=== PATIENT | male | born 1990 | race African-American/Black ===

== ENCOUNTER 2016-07-01 20:33 | Inpatient (IN) | payer OTHER ==
--- NOTE | ~2016-07-01 | HP ---
History And Physical [address] [place]. [address] NAME: TOD HEMPHILL : 89 STATUS : ADM Justin PAT#: [id number] AGE: 26 ADM/REG DATE : 07/01/16 MR#: [id number] REPORT SERV DATE: 07/02/16 DICTATED BY: GEORGI BEAR DATE: 07/01/16 REPORT STATUS : Draft TRANSCRIBED BY: MODL DATE: 07/01/16 DATE OF ADMISSION: 07/01/2016 CHIEF COMPLAINT: Flu-like symptoms and body aches for the last three days or so. HISTORY OF PRESENT ILLNESS: This is a 26-year-old male, who presents to the emergency room at [facility] with the above-mentioned complaint. History is obtained from the patient, his girlfriend who is at bedside, and reviewing data available on the [employer] system. According to Mr. Hemphill and his girlfriend, he had been having ongoing abdominal pain for the last two years or so. Pain is usually in the left lower quadrant of the region and it is constant according to him. He had been to [facility] numerous times and the latest being last week, when according to them, no clear-cut diagnosis was made and no specific treatment was given so far. Then in the last three days, he started having fevers, myalgia, anorexia, and symptoms generally of having a flu. His girlfriend thought it may be tied to his abdominal pain and they decided to come here to be evaluated. In the emergency room, initial workup including a CT scan of his abdomen and pelvis revealed inflamed terminal ileus suggestive of terminal ileitis Crohn's disease pattern due to the inflammation and may be a partial small bowel obstruction as well. He also tested positive for influenza A today. Upon presentation, his temperature was 102 degrees Fahrenheit, heart rate was 110, and WBC was 11,000. Hospitalist Service asked to admit him for further evaluation and treatment. At the time of my evaluation, he denied any chest pain, palpitations, or orthopnea. He had no cough, hemoptysis, night sweats, or weight loss. He has not had any recent falls or loss of consciousness. Did have fevers and chills as mentioned above. Denied any nausea, vomiting, diarrhea, hematemesis, hematochezia, or hematuria. No other history of recent travel or exposures other than those mentioned above. PAST MEDICAL HISTORY: Significant for history of asthma, chronic left-sided abdominal pain. SOCIAL HISTORY: He smokes cigarettes and uses marijuana as well. He denies alcohol use or any other recreational drug use. He is currently unemployed. FAMILY HISTORY: Noncontributory. MEDICATIONS: At home were reviewed by me in the chart today and reordered by me. REVIEW OF SYSTEMS: As in history of present illness. All other systems were reviewed in detail and quite unremarkable. PHYSICAL EXAMINATION: GENERAL: This is a 26-year-old, not in any acute distress. History And Physical [address] [address] NAME: TOD HEMPHILL : 90 STATUS : ADM Justin PAT#: [id number] AGE: 26 ADM/REG DATE : 07/01/16 MR#: [id number] REPORT SERV DATE: 07/02/16 DICTATED BY: GEORGI BEAR DATE: 07/01/16 REPORT STATUS : Draft TRANSCRIBED BY: MARY JO DATE: 07/01/16 HEENT: His head appears to be atraumatic, normocephalic. He is alert, awake, and oriented to time, place, and person. His pupils are equal, reacting to light and accommodating. External ocular muscles are intact. Membranes are moist and pink. Sclerae are nonicteric. NECK: Supple with no jugular venous distention, lymphadenopathy, or thyromegaly. LUNGS: Clear to auscultation with no wheezes, rubs, or crackles. HEART: Heart sounds are regular with no murmurs, rubs, or gallops. ABDOMEN: Soft, nontender. Bowel sounds are present. EXTREMITIES: Show no cyanosis, clubbing, or edema. NEUROLOGIC: Grossly intact. No focal sensory or motor deficits. Higher functions appear intact. VITAL SIGNS: Today show a temperature of 102.8 upon arrival, pulse is 110, respirations 18 a minute, and blood pressure upon arrival was 129/68 oxygen, saturations are 97%, breathing 2 L of oxygen via nasal cannula. LABORATORY DATA: Reviewed on the [facility] [employer] system showed a sodium of 136, potassium 4.2, chloride 101, CO2 of 29, BUN was 11 with a creatinine of 1.37. We do not have any prior values to compare with. Blood glucose was 88. CBC showed a white blood cell count of 11,500, hemoglobin was 12.9, hematocrit 37.8, and platelet count was 407,000. Influenza A was positive today. Urinalysis was grossly unremarkable. Films of the CT scan of his abdomen and pelvis were reviewed by me on the PACS today and interpreted by me. Official radiology comments were also reviewed. According to Radiology, there is marked thickened viscus extending from the margin of the cecum up the expected location of the ileocecal valve suggesting a markedly inflamed terminal ilium. This suggests a terminal ileitis Crohn disease pattern. Please see report for all the other details. There is also low-grade partial small bowel obstruction pattern or asymmetric small bowel ileus. Films of the chest x-ray were reviewed by me on the PACS today and interpreted by me. Per my interpretation, there are emphysematous lung nichole, otherwise no lobar consolidations or effusions. IMPRESSION: 1. Influenza. 2. Acute terminal ileitis. 3. Partial small bowel obstruction. 4. Asthma. 5. Left-sided abdominal pain. 6. Sepsis by criteria. PLAN: We will admit Mr. Hemphill to defensive monitoring under Hospitalist Service for a 24- hour observation period. We will start him on IV fluids for volume resuscitation, establish pain control intravenously, and check his chemistry and CBC in the morning. We will keep him n.p.o. for now and go ahead and consult Gastroenterology to see him in the morning due to his abnormal CT scan and abdominal pain. Meanwhile, we will place him on bronchodilator treatments, continue supplemental oxygen therapy, antipyretics, and other supportive care. We will obtain cultures, but hold off on antibiotics at this time. He will be started on History And Physical [address] [address] NAME: TOD HEMPHILL : 90 STATUS : ADM Justin PAT#: [id number] AGE: 26 ADM/REG DATE : 07/01/16 MR#: [id number] REPORT SERV DATE: 07/02/16 DICTATED BY: GEORGI BEAR DATE: 07/01/16 REPORT STATUS : Draft TRANSCRIBED BY: MODL DATE: 07/01/16 Latanya [address]. We will place him on SCDs for DVT prophylaxis while here as well. I have discussed the above plans with the patient and his girlfriend. Their questions were answered. They are agreeable to the above recommendations. Hospitalist Service will be following him during his stay here. KASANDRA Georgi Bear M.D. / [id number] CC: Nish Lynn M.D.
--- NOTE | ~2016-07-01 | DS ---
Discharge Summary [facility] [address] [facility] [place]. [address] NAME: TOD HEMPHILL : 90 STATUS : DIS IN PAT#: [id number] AGE: 26 ADM/REG DATE : 07/01/16 MR#: [id number] REPORT SERV DATE: 07/15/16 DICTATED BY: RAUL WRIGHT DATE: 07/14/16 REPORT STATUS : Draft TRANSCRIBED BY: MODSuleiman DATE: 07/14/16 ADMISSION DATE: 07/01/2016 DISCHARGE DATE: 07/06/2016 DISCHARGE DIAGNOSES: 1. Influenza A present on arrival. 2. Chronic ileitis with presumptive Crohn disease, new diagnosis. 3. Partial small bowel obstruction, resolved by discharge. 4. Systemic inflammatory response syndrome. 5. Tobacco use. 6. Bradycardia. 7. Asthma history. CONSULTATIONS: Dr. Pink, Dr. High. DISCHARGE MEDICATIONS: 1. Mobic 7.5 mg one tab p.o. daily, #15. 2. Oxycodone 5 mg one tab p.o. q.8 hours p.r.n. pain, #15 both p.r.n. pain. Continue Robaxin 1500 mg one tab p.o. daily. The patient advised on sparingly using Advil, the patient was using this at home. Ultram 50 mg one tab p.o. b.i.d. as needed for breakthrough pain, home dose. Discharged to home with family to have followup with [facility] at discharge, GI in 4 to 8 weeks for Crohn disease, low residual diet. Information given to patient as well lactose free as tolerated and medications were assisted prior to discharge as the patient also required on discharge MAR, budesonide 9 mg one tab p.o. daily times 8-12 weeks for Crohn's. HOSPITAL COURSE: Please see H and P for complete details. HISTORY OF PRESENT ILLNESS: Briefly, Mr. Hemphill is a pleasant 26-year-old male previously healthy except for history of asthma and nicotine use who presents after having generalized body aches and flu-like symptoms diagnosed with flu A, however, on scanning was noted to have ileitis. Concurrently, the patient was consulted with GI and found to have symptoms consistent with Crohn's disease as the patient does have distant family members with Crohn's history. The patient was additionally also noted to have a partial small bowel obstruction. Both these were supportively treated with resolution of partial small bowel resection. While inpatient, the patient able to tolerate p.o. The patient was placed on anti-inflammatories for acute terminal ileitis, suspected Crohn's and completed treatment for flu while inpatient. The patient was slow to improve but did have improvement in symptoms to the point where he was able to tolerate p.o. When able to tolerate p.o., all questions were answered, and followups were attempted to arranged for treatment of this acute issue. The patient will need suppressive therapy over the next 4-6 weeks at which time, he will also need to have establishment with GI and PCP. We have attempted to arrange and we have given multiple venues for patient to establish care at his discretion, and we have also warren-assisted medications for him to have treatment for Crohn's as possible Discharge Summary [address] [place] [place]. [address] NAME: TOD HEMPHILL : 90 STATUS : DIS IN PAT#: [id number] AGE: 26 ADM/REG DATE : 07/01/16 MR#: [id number] REPORT SERV DATE: 07/15/16 DICTATED BY: RAUL WRIGHT DATE: 07/14/16 REPORT STATUS : Draft TRANSCRIBED BY: MODL DATE: 07/14/16 until this followup can be scheduled. The patient understands hospital plan, does have support system outpatient and asked very appropriate questions about disease process and is eager to make progress with current diagnosis. Greater than 30 minutes was spent with the patient education, discussion with plans, arrangement of care. DDN/ARACELIL Raul Wright MD / [id number] CC: Raul Wright MD
--- NOTE | ~2016-07-01 | CN ---
Consultation Report [address] [place]. [address] NAME: TOD MILAN : 90 STATUS : ADM Justin PAT#: [id number] AGE: 26 ADM/REG DATE : 07/01/16 MR#: [id number] REPORT SERV DATE: 07/03/16 DICTATED BY: EKTA US DATE: 07/03/16 REPORT STATUS : Draft TRANSCRIBED BY: MODL DATE: 07/03/16 CONSULTATION DATE OF CONSULTATION: 07/02/2016 LOCATION: Bed 421. I am asked to see this gentleman in Dr. High's absence. This 26-year-old man has had difficulty with abdominal pain for the last month or so. This seems to be intermittent, fleeting, involves the periumbilical area. He has had several episodes of nausea and vomiting. He reports he had a workup at [facility] including blood test was negative. He did not recall having x-rays or endoscopy. Because of persistent symptoms, he presented here for evaluation. New symptoms including fever, myalgias, anorexia, and mild chills. GENERAL REVIEW OF SYSTEMS: Otherwise negative. PAST HISTORY: Remarkable for history of asthma. PHYSICAL EXAMINATION: CHEST: Clear. CARDIAC: Regular rhythm. ABDOMEN: Soft with minimal tenderness to the periumbilical area. Bowel sounds normal. No palpable mass[place] [address], hemoglobin 12.9. Influenza A test was positive. CT of the abdomen raised the question of partial small bowel obstruction with possible inflammation of the terminal ileum. IMPRESSION: 1. Abdominal pain. 2. Abnormal x-ray. 3. Question partial small bowel obstruction. PLAN: Follow up abdominal films have been ordered. Dr. High will follow this patient in 24 hours. Thank you for allowing me to see this gentleman. Consultation Report [address] [place]. [address] NAME: TOD MILAN : 89 STATUS : ADM Justin PAT#: [id number] AGE: 26 ADM/REG DATE : 07/01/16 MR#: [id number] REPORT SERV DATE: 07/03/16 DICTATED BY: EKTA US DATE: 07/03/16 REPORT STATUS : Draft TRANSCRIBED BY: MODL DATE: 07/03/16 MB/MODL Ekta Us M.D. / [id number] CC: DO Grant Tanner M.D.
[2016-07-01 20:21] LABS: BASOPHILS 0.2 %; BASOPHILS ABSOLUTE 0.02 10/3/uL (0.0-0.16); EOSINOPHILS 0.1 %; EOSINOPHILS ABSOLUTE 0.01 10/3/uL (0.0-0.53); ER CBC TAT 0 Hrs 08 Mins; HEMATOCRIT 37.8 % (40.0-51.0); HEMOGLOBIN 12.9 g/dL (13.6-17.8); IMMATURE GRANULOCYTES 0.3 %; IMMATURE GRANULOCYTES ABSOLUTE 0.04 10/3/uL (0.0-0.11); LYMPHOCYTES 6.7 %; LYMPHOCYTES ABSOLUTE 0.77 10/3/uL (0.67-4.30); MEAN CORPUS HGB CONC 34.1 g/dL (32.0-36.0); MEAN CORPUSCULAR HEMOGLOB 30.4 pg (26.0-34.0); MEAN CORPUSCULAR VOLUME 89.2 fL (80-100); MEAN PLATELET VOLUME 9.7 fL (9.2-13.0); MONOCYTES 9.5 %; MONOCYTES ABSOLUTE 1.09 10/3/uL (0.21-1.20); NEUTROPHILS 83.2 %; PLATELET COUNT 407 10/3/uL (150-400); RBC DISTRIBUTION WIDTH 12.3 % (12.0-16.0); RED CELL COUNT 4.24 10/6/uL (4.7-6.1); WHITE BLOOD CELLS 11.5 10/3/uL (4.5-10.5)
[2016-07-01 20:23] LABS: MANUAL DIFF NO %
[2016-07-01 20:29] LABS: ASCORBIC ACID (UR NOT ORDER) NEG (NEG); BILIRUBIN, URINE NEGATIVE (NEG); ER URINALYSIS TAT 0 Hrs 13 Mins; KETONE, URINE NEGATIVE (NEG); LEUKOCYTE ESTERASE(NOT OR TRACE (NEG); NITRITE (URINE) NEG (NEG); WBC (NOT ORDERED) (RFLEX) 11 (0-5)
[2016-07-01 20:35] LABS: A/G RATIO 0.9 (0.7-1.9); ALBUMIN 3.5 G/DL (3.5-5.0); ALKALINE PHOSPHATASE 66 U/L (45-117); BUN (BLOOD UREA NITROGEN) 11 MG/DL (6-23); CALCIUM, SERUM 8.7 MG/DL (8.5-10.4); CHLORIDE, SERUM 101 MMOL/L (96-112); CO2 (CARBON DIOXIDE) 29 MMOL/L (24-34); CREATININE 1.37 MG/DL (0.70-1.30); GFR AFRICAN AMERICAN 82 ML/MIN (>=60); GFR NON AFRICAN AMERICAN 71 ML/MIN (>=60); GLOBULIN 4.1 G/DL (2.5-4.1); GLUCOSE, SERUM 88 MG/DL (60-99); LACTATE 1.6 MMOL/L (0.3-2.4); POTASSIUM, SERUM 4.2 MMOL/L (3.5-5.3); SGPT(ALT) 11 U/L (5-65); SODIUM, SERUM 136 MMOL/L (135-148); TOTAL BILIRUBIN 0.6 MG/DL (0-1.2); TOTAL PROTEIN 7.6 G/DL (6.0-8.5)
[2016-07-01 20:36] LABS: SGOT(AST) 17 U/L (5-40)
[2016-07-01 20:44] LABS: INFLUENZA A SCREEN POSITIVE (NEGATIVE); INFLUENZA B SCREEN NEGATIVE (NEGATIVE)
[2016-07-01 21:28] LABS: PROCALCITONIN 0.58 ng/mL (<0.5)
[2016-07-01] MEDS ORDERED: ADVIL PO (22:45)
[2016-07-01] MEDS ORDERED: ULTRAM50 PO (22:45)
[2016-07-01] MEDS ORDERED: METHOC750B PO (22:45)
[2016-07-02 05:34] LABS: ASCORBIC ACID (UR NOT ORDER) NEG (NEG); BILIRUBIN, URINE NEGATIVE (NEG); KETONE, URINE NEGATIVE (NEG); LEUKOCYTE ESTERASE(NOT OR NEG (NEG); WBC (NOT ORDERED) (RFLEX) 1 (0-5)
[2016-07-02 06:11] LABS: BASOPHILS 0.1 %; BASOPHILS ABSOLUTE 0.02 10/3/uL (0.0-0.16); EOSINOPHILS 0.1 %; EOSINOPHILS ABSOLUTE 0.02 10/3/uL (0.0-0.53); HEMATOCRIT 37.7 % (40.0-51.0); HEMOGLOBIN 12.9 g/dL (13.6-17.8); IMMATURE GRANULOCYTES 0.3 %; IMMATURE GRANULOCYTES ABSOLUTE 0.04 10/3/uL (0.0-0.11); LYMPHOCYTES 6.9 %; LYMPHOCYTES ABSOLUTE 0.95 10/3/uL (0.67-4.30); MEAN CORPUS HGB CONC 34.2 g/dL (32.0-36.0); MEAN CORPUSCULAR HEMOGLOB 30.9 pg (26.0-34.0); MEAN CORPUSCULAR VOLUME 90.2 fL (80-100); MEAN PLATELET VOLUME 8.9 fL (9.2-13.0); MONOCYTES 12.1 %; MONOCYTES ABSOLUTE 1.67 10/3/uL (0.21-1.20); NEUTROPHILS 80.5 %; NEUTROPHILS ABSOLUTE 11.09 10/3/uL (2.02-8.40); PLATELET COUNT 338 10/3/uL (150-400); RBC DISTRIBUTION WIDTH 12.1 % (12.0-16.0); RED CELL COUNT 4.18 10/6/uL (4.7-6.1); WHITE BLOOD CELLS 13.8 10/3/uL (4.5-10.5)
[2016-07-02 06:12] LABS: MANUAL DIFF NO %
[2016-07-02 06:26] LABS: BUN (BLOOD UREA NITROGEN) 10 MG/DL (6-23); CALCIUM, SERUM 8.4 MG/DL (8.5-10.4); CHLORIDE, SERUM 110 MMOL/L (96-112); CO2 (CARBON DIOXIDE) 26 MMOL/L (24-34); CREATININE 1.17 MG/DL (0.70-1.30); GFR AFRICAN AMERICAN 99 ML/MIN (>=60); GFR NON AFRICAN AMERICAN 86 ML/MIN (>=60); GLUCOSE, SERUM 85 MG/DL (60-99); PHOSPHORUS, SERUM 1.8 MG/DL (2.5-4.5); POTASSIUM, SERUM 4.5 MMOL/L (3.5-5.3); SODIUM, SERUM 142 MMOL/L (135-148)
[2016-07-03 07:28] LABS: PROCALCITONIN 0.44 ng/mL (<0.5)
[2016-07-03 18:51] LABS: PHOSPHORUS, SERUM 2.9 MG/DL (2.5-4.5)
[2016-07-05 05:49] LABS: BASOPHILS 0 %; EOSINOPHILS 0 %; HEMATOCRIT 35.5 % (40.0-51.0); HEMOGLOBIN 12.2 g/dL (13.6-17.8); IMMATURE GRANULOCYTES 0.3 %; IMMATURE GRANULOCYTES ABSOLUTE 0.03 10/3/uL (0.0-0.11); LYMPHOCYTES 10.6 %; LYMPHOCYTES ABSOLUTE 1.02 10/3/uL (0.67-4.30); MEAN CORPUS HGB CONC 34.4 g/dL (32.0-36.0); MEAN CORPUSCULAR HEMOGLOB 30.7 pg (26.0-34.0); MEAN CORPUSCULAR VOLUME 89.4 fL (80-100); MONOCYTES 9.3 %; MONOCYTES ABSOLUTE 0.89 10/3/uL (0.21-1.20); NEUTROPHILS 79.8 %; NEUTROPHILS ABSOLUTE 7.68 10/3/uL (2.02-8.40); RBC DISTRIBUTION WIDTH 12.7 % (12.0-16.0); RED CELL COUNT 3.97 10/6/uL (4.7-6.1); WHITE BLOOD CELLS 9.6 10/3/uL (4.5-10.5)
[2016-07-05 06:01] LABS: BUN (BLOOD UREA NITROGEN) 11 MG/DL (6-23); CALCIUM, SERUM 9.2 MG/DL (8.5-10.4); CHLORIDE, SERUM 106 MMOL/L (96-112); CO2 (CARBON DIOXIDE) 30 MMOL/L (24-34); CREATININE 0.91 MG/DL (0.70-1.30); GFR AFRICAN AMERICAN 134 ML/MIN (>=60); GFR NON AFRICAN AMERICAN 116 ML/MIN (>=60); PHOSPHORUS, SERUM 2.7 MG/DL (2.5-4.5); POTASSIUM, SERUM 4.4 MMOL/L (3.5-5.3); SODIUM, SERUM 142 MMOL/L (135-148)
[2016-07-05 06:02] LABS: MANUAL DIFF NO %; PLATELET COUNT 458 10/3/uL (150-400)
[2016-07-05 06:03] LABS: GLUCOSE, SERUM 103 MG/DL (60-99)
[2016-07-06 06:49] LABS: BUN (BLOOD UREA NITROGEN) 14 MG/DL (6-23); CALCIUM, SERUM 8.6 MG/DL (8.5-10.4); CHLORIDE, SERUM 107 MMOL/L (96-112); CO2 (CARBON DIOXIDE) 30 MMOL/L (24-34); CREATININE 0.95 MG/DL (0.70-1.30); GFR AFRICAN AMERICAN 128 ML/MIN (>=60); GFR NON AFRICAN AMERICAN 110 ML/MIN (>=60); GLUCOSE, SERUM 101 MG/DL (60-99); PHOSPHORUS, SERUM 2.9 MG/DL (2.5-4.5); POTASSIUM, SERUM 4.1 MMOL/L (3.5-5.3); SODIUM, SERUM 142 MMOL/L (135-148)
[2016-07-06 06:58] LABS: HEMATOCRIT 35.2 % (40.0-51.0); HEMOGLOBIN 11.7 g/dL (13.6-17.8); MEAN CORPUS HGB CONC 33.2 g/dL (32.0-36.0); MEAN CORPUSCULAR HEMOGLOB 29.8 pg (26.0-34.0); MEAN CORPUSCULAR VOLUME 89.6 fL (80-100); MEAN PLATELET VOLUME 9.6 fL (9.2-13.0); PLATELET COUNT 412 10/3/uL (150-400); RBC DISTRIBUTION WIDTH 12.7 % (12.0-16.0); RED CELL COUNT 3.93 10/6/uL (4.7-6.1); WHITE BLOOD CELLS 13.2 10/3/uL (4.5-10.5)
[2016-07-06 07:03] LABS: MANUAL DIFF YES %
[2016-07-06 07:26] LABS: LYMPHOCYTES 11 %; LYMPHOCYTES ABSOLUTE (CALC) 1.45 10/3/uL (0.67-4.30); MONOCYTES 9 %; MONOCYTES ABSOLUTE (CALC) 1.19 10/3/uL (0.21-1.20); NEUTROPHILS ABSOLUTE (CALC) 10.56 10/3/uL (2.02-8.40); PLATELET ESTIMATE SLT INC (ADEQUATE); SEGMENTED NEUTROPHIL (0) 80 %; TOTAL NUCLEATED CELLS 100
[2016-07-06 07:27] LABS: ACANTHOCYTES OCC (0-2/OIF); TARGET CELLS OCC (1-2/OIF) (0-1/OIF)
[2016-07-06] MEDS ORDERED: UCERIS9 MG PO (14:16)
[2016-07-06] MEDS ORDERED: MOBIC7.5 PO (14:16)
[2016-07-06] MEDS ORDERED: OXYCOD PO (14:16)
[2016-07-06] MEDS ORDERED: PR25 PO (14:17)
== END 2016-07-06 17:36 | disposition home or self-care (01) | DRG 385 ==
LOC: ER 20:33 → 4SO 23:09
PROVIDERS: Internal Medicine; Internal Medicine Pulmonary Disease; Nurse Practitioner
DX: K50.012 Crohn's disease of small intestine with intestinal obstruction (principal); A41.9 Sepsis, unspecified organism; J44.1 Chronic obstructive pulmonary disease with (acute) exacerbation; J11.1 Influenza due to unidentified influenza virus with other respiratory manifestations; F17.210 Nicotine dependence, cigarettes, uncomplicated; F12.90 Cannabis use, unspecified, uncomplicated; R00.1 Bradycardia, unspecified
CPT/HCPCS: 71010; 74000; 74176; 74249; 80048; 80053; 81001; 81479; 81479-59; 82397; 82397-59; 83520; 83520-59; 83605; 83735; 84100; 84145; 85025; 86140; 87040; 87045; 87046; 87046-59; 87070; 87177; 87328; 87329; 87804; 87880; 87899; 87899-59; 88346; 88350; 89055; 93005; 96374; 99285; A9270-GY; J1956; J2920; J2930

== ENCOUNTER 2016-07-11 19:09 | Inpatient (IN) | payer OTHER ==
--- NOTE | ~2016-07-11 | HP ---
History And Physical [address] [facility] [place]. [address] NAME: TOD MILAN : 90 STATUS : ADM IN [facility]#: [id number] AGE: 26 ADM/REG DATE : 07/12/16 MR#: [id number] REPORT SERV DATE: 07/12/16 DICTATED BY: KELLEY TORRES DATE: 07/12/16 REPORT STATUS : Draft TRANSCRIBED BY: MODL DATE: 07/12/16 DATE OF ADMISSION: 07/12/2016 CHIEF COMPLAINT: A 26-year-old male with classic findings on recent CT scan for Crohn's disease, including a focal ileitis, now presenting with increasing abdominal pain and fevers. HISTORY OF PRESENTING ILLNESS: The patient's history was obtained through careful interview with the patient, coupled with review of [facility] medical records. The patient has really been having abdominal problems on and off for about a year or more, but he just presented recently to the hospital with increasing abdominal pain, was found to have focal ileitis, and inflammatory changes of the colon, seen by Dr. Pink. The patient had presumptive Crohn's disease, was started on outpatient steroids, and the hope was to allow his bowel disease to "calm down" before undergoing a colonoscopy for definitive diagnosis. But over the last few days, the patient has developed increasing diarrhea (no blood in it and no melena) and he has also developed fevers, chills, confusion, and lethargy. He describes nausea and severe reflux symptoms. No vomiting. He has had sour belches that are continuous. He describes midquadrant abdominal discomfort; a bloating, aching, and cramping quality pain exacerbated by movement; 10/10 severity. No shortness of breath. No cough. No chest pain. REVIEW OF SYSTEMS: Otherwise, a 14-point review of systems was obtained and was negative. PAST MEDICAL HISTORY: 1. Crohn's disease, followed now by Dr. Pink. 2. Asthma. PAST SURGICAL HISTORY: Denies any. ALLERGIES: NO KNOWN DRUG ALLERGIES. SOCIAL HISTORY: The patient smokes cigarettes. Does not drink alcohol. He is single. Lives with his girlfriend. Has two children. He smokes marijuana occasionally. Lives in [place], [place]. FAMILY HISTORY: No family history known of ulcerative colitis, liver disease, or Crohn's disease. History And Physical [address] [place]. [address] NAME: TOD MILAN : 90 STATUS : ADM IN PAT#: [id number] AGE: 26 ADM/REG DATE : 07/12/16 MR#: [id number] REPORT SERV DATE: 07/12/16 DICTATED BY: KELLEY TORRES DATE: 07/12/16 REPORT STATUS : Draft TRANSCRIBED BY: MARY JO DATE: 07/12/16 CURRENT MEDICATIONS: Unknown at this time. We have requested pharmacy to obtain a medication list for our records. PHYSICAL EXAMINATION: VITAL SIGNS: Temperature 102.6, pulse 105, blood pressure 125/58, respiratory rate 22, O2 saturation 100% on room air. GENERAL: A pleasant, cooperative male, but he describes distress from nausea and intractable abdominal discomfort. HEENT: Pupils equal, round, and reactive to light. No conjunctival pallor. No scleral icterus. Nares are patent. Oropharynx is clear of obstruction. Moist mucous membranes. NECK: Trachea midline. No thyromegaly. LYMPH: No cervical lymphadenopathy. No supraclavicular lymphadenopathy. No inguinal lymphadenopathy. RESPIRATORY: Clear to auscultation at bases. No wheezes, rales, or rhonchi. Normal respiratory effort. CARDIOVASCULAR: Tachycardic, regular rhythm. No murmurs, rubs, or gallops. No extremity edema is appreciated. ABDOMEN: Diffuse tenderness by examination, really nonfocal. There is guarding throughout. No rebound effect. Nondistended by my exam with active bowel tones. No hepatosplenomegaly. DERMATOLOGICAL: Warm and dry extremities. No pallor, no cyanosis. PSYCHIATRIC: Normal affect. Good mood. Alert and oriented x3. LABORATORY DATA: White blood cell count 8.9, hemoglobin 11, hematocrit 34, platelets 522. Sodium 138, potassium 3.2, chloride 104, bicarb 26, BUN 12, creatinine 1.0, glucose 120, lactic acid 1.9. Urinalysis shows 11 white blood cells, negative leukocyte esterase. STUDIES: I did review the recent CT scan with colitis and ileitis. ASSESSMENT AND PLAN: 1. Sepsis. Although a normal white blood cell count, the patient has a fever of 102.6, tachycardia, tachypnea, and encephalopathy. We will check blood cultures. Place on appropriate IV antibiotics. 2. Crohn's exacerbation. Continue steroids. IV antibiotics. 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 3. Anemia. Monitor closely. ERENDIRA/MARY JO Kelley Torres M.D. / [id number] CC: Kelley Torres M.D. History And Physical [address] [address] NAME: TOD MILAN : 90 STATUS : ADM IN [facility]#: [id number] AGE: 26 ADM/REG DATE : 07/12/16 MR#: [id number] REPORT SERV DATE: 07/12/16 DICTATED BY: KELLEY TORRES DATE: 07/12/16 REPORT STATUS : Draft TRANSCRIBED BY: MARY JO DATE: 07/12/16 Josemanuel Pink M.D.
--- NOTE | ~2016-07-11 | DS ---
Discharge Summary [facility] [address] [place]. [address] NAME: TOD MILAN : 90 STATUS : DIS IN PAT#: [id number] AGE: 26 ADM/REG DATE : 07/12/16 MR#: [id number] REPORT SERV DATE: 07/15/16 DICTATED BY: ORALIA BRAY DATE: 07/14/16 REPORT STATUS : Draft TRANSCRIBED BY: MARY JO DATE: 07/14/16 ADMISSION DATE: 07/12/2016 DISCHARGE DATE: 07/14/2016 DISCHARGE DIAGNOSES: 1. Acute Crohn's exacerbation. 2. Sepsis secondary to ileitis. 3. Severe protein-energy malnutrition due to malabsorption from Crohn's disease. 4. Tobacco abuse. CONSULTATION: Gastroenterology, Dr. High. INVASIVE PROCEDURE: None. HISTORY OF PRESENT ILLNESS: For detailed HPI, please make reference to Dr. Dom Herr's dictation on 07/12/2016. In brief; this is a 26-year-old male with medical history of Crohn's disease who presented to the hospital with increased worsening abdominal pain, fever, and chills. In the ER, he was found to have a temperature of 102.6, pulse of 105, blood pressure of 125/58, respiratory rate of 22. Physical exam significant for diffuse abdominal tenderness with guarding but no rebound. Laboratory data significant for white cell count of 8.9, hemoglobin of 11, platelets of 522, lactic acid of 1.9. Urinalysis was negative. An assessment of sepsis due to Crohn's exacerbation as well as focal ileitis was made in the ER. Patient was admitted to the Hospitalist Service. HOSPITAL COURSE: 1. The patient with history of focal ileitis. The patient was started on IV methylprednisolone, levofloxacin, and IV Flagyl. The patient's abdominal symptoms gradually improved during the course of this admission. The patient's process control board operator was consulted, recommended a repeat CT abdomen that showed some inflammatory changes with thickening around the terminal ileum consistent with history of Crohn's disease. There was mention of concern for possible small bowel obstruction. However, this was not consistent with physical examination as the patient was able to tolerate food by mouth without any nausea or vomiting. Abdominal pain at the time of discharge has significantly improved. Per process control board operator, the patient will be discharged home to continue budesonide for a total of 12 weeks. The patient will follow up with Gastroenterology as an outpatient for further management of Crohn's disease. 2. Leukocytosis. On presentation, patient's white cell count was 11,000; however, after initiation of IV steroids, the patient's white blood cell trended up to 33,000. No evidence of intraabdominal abscess noted during the course of this admission. No evidence of perforation noted during the course of this admission. The patient was advised to continue budesonide as dictated above and follow up with Gastroenterology as an outpatient. 3. Severe protein-energy malnutrition due to malabsorption secondary to Crohn's disease. The patient was started on Ensure during the course of this admission. The patient continued to tolerate p.o. The patient was advised to continue high calorie intake so Discharge Summary [address] [address] NAME: TOD MILAN : 90 STATUS : DIS IN PAT#: [id number] AGE: 26 ADM/REG DATE : 07/12/16 MR#: [id number] REPORT SERV DATE: 07/15/16 DICTATED BY: ORALIA BRYA DATE: 07/14/16 REPORT STATUS : Draft TRANSCRIBED BY: MARY JO DATE: 07/14/16 as to improve on his BMI which was 19 on presentation. DISCHARGE MEDICATION: Budesonide 9 mg p.o. daily. DISCHARGE FOLLOWUP: 1. Follow up with Gastroenterology as an outpatient within two to three weeks of discharge. 2. Follow up with primary care physician within one to two weeks of discharge. DISCHARGE ACTIVITIES: As tolerated. Greater than 35 minutes was used to prepare this patient's discharge, reconcile medication, and advise the patient on discharge plans and followup. AFTABO/MARY JO Oralia Bray MD / [id number]
--- NOTE | ~2016-07-11 | CN ---
Consultation Report [facility] [address] [place]. [address] NAME: TOD MILAN : 90 STATUS : ADM IN PAT#: [id number] AGE: 26 ADM/REG DATE : 07/12/16 MR#: [id number] REPORT SERV DATE: 07/14/16 DICTATED BY: GRANT HIGH DATE: 07/13/16 REPORT STATUS : Draft TRANSCRIBED BY: MODSuleiman DATE: 07/13/16 CONSULTATION DATE OF CONSULTATION: HISTORY OF PRESENT ILLNESS: This is a 26-year-old man who I am asked to see as an unattached GI consult for Crohn ileitis. This gentleman was seen by Dr. Pink on-call coverage for me when I was on-call last week. I saw one day before he was discharged home. He presented with abdominal pain, diarrhea, and weight loss. CT scan showed ileal thickening. A small-bowel follow-through showed some stenosis and luminal encroachment. CRP was elevated and IBD serologies were positive, consistent with Crohn's. He was discharged home on budesonide. He said he was doing fairly well at home until he started to just eat whatever he wanted to. He ate a lot of bulk and fiber and beans and burritos and started to have abdominal pain and some distention, so he came back to the hospital. White count was noted to be elevated at 31.1 thousand whereas it had been 8.9 thousand when he went home. He was admitted and put to bowel rest, but he was put back on some solid food today. Albumin is low at 2.3, and chemistries are otherwise unremarkable. He has not been seen by a surgeon. Unfortunately, his options for medical therapy are somewhat limited because he does not have a medical insurance. PAST MEDICAL HISTORY: 1. Crohn ileitis. 2. Asthma. 3. Tobacco abuse. PAST SURGICAL HISTORY: None. MEDICATIONS (ON ADMISSION): Budesonide 9 mg a day, oxycodone, meloxicam. ALLERGIES: NO KNOWN DRUG ALLERGIES. FAMILY HISTORY: No family history of inflammatory bowel disease. SOCIAL HISTORY: He smokes cigarettes. He said he does not drink alcohol. He is single, although he lives with his girlfriend and has two children with her. He smokes marijuana on occasion. He lives in [place], [place]. REVIEW OF SYSTEMS: Otherwise, unremarkable for constitutional, endocrine, neurologic, psychiatric, ocular, ENT, pulmonary, cardiovascular, GI, , or rheumatologic symptoms except for as noted above. Consultation Report [place] [address] [facility] [address] NAME: TOD MILAN : 90 STATUS : ADM IN PAT#: [id number] AGE: 26 ADM/REG DATE : 07/12/16 MR#: [id number] REPORT SERV DATE: 07/14/16 DICTATED BY: GRANT HIGH DATE: 07/13/16 REPORT STATUS : Draft TRANSCRIBED BY: MARY JO DATE: 07/13/16 PHYSICAL EXAMINATION: GENERAL: He is thin and somewhat cachectic in appearance. VITAL SIGNS: Afebrile, but he did have a low-grade fever on admission. SKIN: Warm and dry. LUNGS: Clear. ABDOMEN: Soft with mild tenderness in the left lower quadrant, but no guarding or rebound tenderness. EXTREMITIES: No edema. LABORATORY DATA: White count 31.1, hemoglobin 12.5, platelet count 476. Electrolytes normal. Albumin 2.3. KUB: No obstructive changes. Lactate normal. IBD serologies positive and consistent with Crohn's. IMPRESSION: Crohn ileitis with luminal narrowing. Mild partial obstructive symptoms on this admission, likely related to high-bulk diet. RECOMMENDATIONS: 1. Low-residue diet. 2. Solu-Medrol 30 mg IV q.12 hours until he is discharged and then back on budesonide 9 mg daily x12 weeks. 3. CT scan of the abdomen and pelvis with IV and oral contrast to rule out a psoas abscess. 4. Smoking cessation was recommended. 5. Check a C-reactive protein. 6. If the CT scan is negative and he tolerates his diet, he can probably go home on the budesonide, although I am concerned he will ultimately come to surgery due to significant luminal narrowing in the ilium and his lack of good options for medical therapy. /MARY JO Grant High M.D. / [id number] CC: Oralia Verdugo MD
[~2016-07-11 19:09] MED LIST: ADVIL PO; METHOC750B PO; MOBIC7.5 PO; OXYCOD PO; PR25 PO; UCERIS9 MG PO; ULTRAM50 PO
[2016-07-11 20:43] LABS: BASOPHILS 0 %; EOSINOPHILS 0 %; HEMATOCRIT 33.7 % (40.0-51.0); HEMOGLOBIN 11.7 g/dL (13.6-17.8); IMMATURE GRANULOCYTES 0.3 %; IMMATURE GRANULOCYTES ABSOLUTE 0.03 10/3/uL (0.0-0.11); LYMPHOCYTES 8.4 %; LYMPHOCYTES ABSOLUTE 0.75 10/3/uL (0.67-4.30); MEAN CORPUS HGB CONC 34.7 g/dL (32.0-36.0); MEAN CORPUSCULAR HEMOGLOB 30.7 pg (26.0-34.0); MEAN CORPUSCULAR VOLUME 88.5 fL (80-100); MEAN PLATELET VOLUME 8.7 fL (9.2-13.0); MONOCYTES ABSOLUTE 0.53 10/3/uL (0.21-1.20); NEUTROPHILS 85.3 %; NEUTROPHILS ABSOLUTE 7.57 10/3/uL (2.02-8.40); PLATELET COUNT 522 10/3/uL (150-400); RBC DISTRIBUTION WIDTH 12.6 % (12.0-16.0); RED CELL COUNT 3.81 10/6/uL (4.7-6.1); WHITE BLOOD CELLS 8.9 10/3/uL (4.5-10.5)
[2016-07-11 20:44] LABS: MANUAL DIFF NO %
[2016-07-11 20:57] LABS: BUN (BLOOD UREA NITROGEN) 12 MG/DL (6-23); CALCIUM, SERUM 8.2 MG/DL (8.5-10.4); CHLORIDE, SERUM 104 MMOL/L (96-112); CO2 (CARBON DIOXIDE) 26 MMOL/L (24-34); CREATININE 1.02 MG/DL (0.70-1.30); DIRECT BILIRUBIN 0.1 MG/DL (0.0-0.4); GFR AFRICAN AMERICAN 117 ML/MIN (>=60); GFR NON AFRICAN AMERICAN 101 ML/MIN (>=60); GLUCOSE, SERUM 120 MG/DL (60-99); INDIRECT BILIRUBIN(NOT ORDER) 0.3 MG/DL (0.1-0.9); SODIUM, SERUM 138 MMOL/L (135-148); TOTAL BILIRUBIN 0.4 MG/DL (0-1.2)
[2016-07-11 20:58] LABS: POTASSIUM, SERUM 3.2 MMOL/L (3.5-5.3)
[2016-07-11 23:50] LABS: ASCORBIC ACID (UR NOT ORDER) NEG (NEG); BILIRUBIN, URINE NEGATIVE (NEG); ER URINALYSIS TAT 0 Hrs 13 Mins; KETONE, URINE NEGATIVE (NEG); LEUKOCYTE ESTERASE(NOT OR NEG (NEG); NITRITE (URINE) NEG (NEG); WBC (NOT ORDERED) (RFLEX) 11 (0-5)
[2016-07-12] MEDS ORDERED: UCERIS9 MG PO (00:33)
[2016-07-12] MEDS ORDERED: MOBIC7.5 PO (00:34)
[2016-07-12] MEDS ORDERED: OXYCOD PO (00:35)
[2016-07-12 06:29] LABS: BASOPHILS 0.2 %; BASOPHILS ABSOLUTE 0.03 10/3/uL (0.0-0.16); EOSINOPHILS 0 %; HEMOGLOBIN 13.1 g/dL (13.6-17.8); IMMATURE GRANULOCYTES 0.5 %; IMMATURE GRANULOCYTES ABSOLUTE 0.09 10/3/uL (0.0-0.11); LYMPHOCYTES 4.8 %; MEAN CORPUSCULAR HEMOGLOB 30.4 pg (26.0-34.0); MEAN CORPUSCULAR VOLUME 89.3 fL (80-100); MEAN PLATELET VOLUME 8.8 fL (9.2-13.0); MONOCYTES 8.2 %; MONOCYTES ABSOLUTE 1.38 10/3/uL (0.21-1.20); NEUTROPHILS 86.3 %; NEUTROPHILS ABSOLUTE 14.47 10/3/uL (2.02-8.40); PLATELET COUNT 540 10/3/uL (150-400); RBC DISTRIBUTION WIDTH 12.7 % (12.0-16.0); RED CELL COUNT 4.31 10/6/uL (4.7-6.1)
[2016-07-12 06:30] LABS: HEMATOCRIT 38.5 % (40.0-51.0); INTERNATIONAL NORMAL RATI 1.5 UNITS (-); MANUAL DIFF NO %; PROTIME (NOT ORD) 18.2 SEC (12.0-14.5); WHITE BLOOD CELLS 16.8 10/3/uL (4.5-10.5)
[2016-07-12 06:52] LABS: BUN (BLOOD UREA NITROGEN) 12 MG/DL (6-23); CHLORIDE, SERUM 107 MMOL/L (96-112); CO2 (CARBON DIOXIDE) 26 MMOL/L (24-34); CREATININE 0.89 MG/DL (0.70-1.30); GFR AFRICAN AMERICAN 137 ML/MIN (>=60); GFR NON AFRICAN AMERICAN 118 ML/MIN (>=60); SGOT(AST) 16 U/L (5-40); SGPT(ALT) 28 U/L (5-65); SODIUM, SERUM 139 MMOL/L (135-148); TOTAL BILIRUBIN 0.7 MG/DL (0-1.2); ULTRASENSITIVE TSH 0.996 MCIU/ML (0.358-3.740)
[2016-07-12 06:53] LABS: A/G RATIO 0.7 (0.7-1.9); ALBUMIN 2.3 G/DL (3.5-5.0); ALKALINE PHOSPHATASE 54 U/L (45-117); GLOBULIN 3.5 G/DL (2.5-4.1); GLUCOSE, SERUM 93 MG/DL (60-99); POTASSIUM, SERUM 4.6 MMOL/L (3.5-5.3); TOTAL PROTEIN 5.8 G/DL (6.0-8.5)
[2016-07-13 05:17] LABS: HEMATOCRIT 36.5 % (40.0-51.0); HEMOGLOBIN 12.5 g/dL (13.6-17.8); MEAN CORPUS HGB CONC 34.2 g/dL (32.0-36.0); MEAN CORPUSCULAR HEMOGLOB 30.3 pg (26.0-34.0); MEAN CORPUSCULAR VOLUME 88.4 fL (80-100); MEAN PLATELET VOLUME 8.7 fL (9.2-13.0); PLATELET COUNT 476 10/3/uL (150-400); RED CELL COUNT 4.13 10/6/uL (4.7-6.1)
[2016-07-13 05:21] LABS: WHITE BLOOD CELLS 31.1 10/3/uL (4.5-10.5)
[2016-07-13 05:22] LABS: MANUAL DIFF YES %
[2016-07-13 05:32] LABS: ALBUMIN 2.3 G/DL (3.5-5.0); BUN (BLOOD UREA NITROGEN) 12 MG/DL (6-23); CHLORIDE, SERUM 105 MMOL/L (96-112); CO2 (CARBON DIOXIDE) 29 MMOL/L (24-34); CREATININE 0.93 MG/DL (0.70-1.30); GFR AFRICAN AMERICAN 131 ML/MIN (>=60); GFR NON AFRICAN AMERICAN 113 ML/MIN (>=60); PHOSPHORUS, SERUM 2.5 MG/DL (2.5-4.5); SODIUM, SERUM 138 MMOL/L (135-148)
[2016-07-13 05:33] LABS: CALCIUM, SERUM 9.1 MG/DL (8.5-10.4); GLUCOSE, SERUM 122 MG/DL (60-99)
[2016-07-13 06:27] LABS: BAND NEUTROPHILS 2 %; LYMPHOCYTES 2 %; LYMPHOCYTES ABSOLUTE (CALC) 0.62 10/3/uL (0.67-4.30); MONOCYTES 6 %; MONOCYTES ABSOLUTE (CALC) 1.87 10/3/uL (0.21-1.20); NEUTROPHILS ABSOLUTE (CALC) 28.61 10/3/uL (2.02-8.40); PLATELET ESTIMATE SLT INC (ADEQUATE); SEGMENTED NEUTROPHIL (0) 90 %; TOTAL NUCLEATED CELLS 100; TOXIC GRANULATION 1+; VACUOLATED NEUTROPHILES OCC
[2016-07-13 06:28] LABS: BURR CELLS 1+ (3-10/OIF) (0-2/OIF); POIKILOCYTOSIS 1+ (5-10/OIF) (0-5/OIF)
[2016-07-14 06:40] LABS: HEMOGLOBIN 12.6 g/dL (13.6-17.8); MEAN CORPUS HGB CONC 34.1 g/dL (32.0-36.0); MEAN CORPUSCULAR HEMOGLOB 30.7 pg (26.0-34.0); MEAN CORPUSCULAR VOLUME 90.2 fL (80-100); MEAN PLATELET VOLUME 9.5 fL (9.2-13.0); PLATELET COUNT 540 10/3/uL (150-400); RBC DISTRIBUTION WIDTH 12.9 % (12.0-16.0)
[2016-07-14 06:41] LABS: MANUAL DIFF YES %; WHITE BLOOD CELLS 38.3 10/3/uL (4.5-10.5)
[2016-07-14 07:09] LABS: ALBUMIN 2.7 G/DL (3.5-5.0); BUN (BLOOD UREA NITROGEN) 16 MG/DL (6-23); CALCIUM, SERUM 9.4 MG/DL (8.5-10.4); CHLORIDE, SERUM 99 MMOL/L (96-112); CO2 (CARBON DIOXIDE) 28 MMOL/L (24-34); CREATININE 0.89 MG/DL (0.70-1.30); GFR AFRICAN AMERICAN 137 ML/MIN (>=60); GFR NON AFRICAN AMERICAN 118 ML/MIN (>=60); GLUCOSE, SERUM 84 MG/DL (60-99); PHOSPHORUS, SERUM 2.8 MG/DL (2.5-4.5); POTASSIUM, SERUM 4.3 MMOL/L (3.5-5.3); SODIUM, SERUM 137 MMOL/L (135-148)
[2016-07-14 07:44] LABS: BAND NEUTROPHILS 9 %; LYMPHOCYTES 3 %; LYMPHOCYTES ABSOLUTE (CALC) 1.15 10/3/uL (0.67-4.30); MONOCYTES 2 %; MONOCYTES ABSOLUTE (CALC) 0.77 10/3/uL (0.21-1.20); PLASMA CELL 1 % (0); PLATELET ESTIMATE SLT DEC (ADEQUATE); RBC MORPHOLOGY NORM (NORMAL); SEGMENTED NEUTROPHIL (0) 85 %; TOTAL NUCLEATED CELLS 100; TOXIC GRANULATION 1+; VACUOLATED NEUTROPHILES OCC
[2016-07-14] MEDS ORDERED: SENTAB PO (13:06)
[2016-07-14] MEDS ORDERED: NORCO1 TA1 PO (13:06)
[2016-07-14] MEDS ORDERED: DSS PO (13:07)
== END 2016-07-14 15:12 | disposition home or self-care (01) | DRG 871 ==
LOC: ER 19:09 → 6NO 07-12 00:19
PROVIDERS: Emergency Medicine; Hospitalist
DX: A41.89 Other specified sepsis (principal); E43 Unspecified severe protein-calorie malnutrition; G92 Toxic encephalopathy; K50.00 Crohn's disease of small intestine without complications; Z68.1 Body mass index [BMI] 19.9 or less, adult; F17.210 Nicotine dependence, cigarettes, uncomplicated; J45.909 Unspecified asthma, uncomplicated; D64.9 Anemia, unspecified
CPT/HCPCS: 74000; 74177; 80048; 80053; 80069; 81001; 82247; 82248; 83605; 83735; 84100; 84145; 84443; 85025; 85610; 85730; 86140; 87040; 96374; 99285; A9270-GY; J1956; J2920; J3475; Q9967

== ENCOUNTER 2016-07-25 07:04 | Inpatient (IN) | payer OTHER ==
--- NOTE | ~2016-07-25 | CN ---
Consultation Report [facility] [address] [place]. [address] NAME: TOD MILAN : 90 STATUS : ADM IN PAT#: [id number] AGE: 26 ADM/REG DATE : 07/25/16 MR#: [id number] REPORT SERV DATE: 07/25/16 DICTATED BY: GRANT HIGH DATE: 07/25/16 REPORT STATUS : Draft TRANSCRIBED BY: MODL DATE: 07/25/16 CONSULT DATE OF CONSULTATION: HISTORY OF PRESENT ILLNESS: This 26-year-old male was diagnosed with Crohn's disease about a month ago. CT in early June showed some ileal thickening. He, at one time, had a white count of 31,000. He was admitted on 07/14/2016. He was sent home on budesonide. He has really been not eating a week and for the last week. He has not been on p.o. prednisone. For the last week, he has been having abdominal pain. Today vomited up. CT today showed obstructive change of the ileum. He did have a small-bowel follow through on 07/05/2016, which showed some thickening of ileal mucosa. On exam, he is markedly distended. He has no abdominal tenderness. He has active bowel sounds. White count is 17,000. He does appear to be chronically depression. IMPRESSION: The patient with Crohn's disease of the terminal ileum with high-grade obstruction. Unclear whether dietary indiscretion plays a part here. At this point, he may have more fibrostenotic disease than actually acute inflammation. PLAN: Probably need to consider surgical resection here. Even if he improves medically, this would probably only be for the short term. DICTATED BY: Dajuan Carrasquillo/MARY JO Grant High M.D. / [id number] CC: Johnny Cooley MD
--- NOTE | ~2016-07-25 | OP ---
Record Of Operation [address] [place]. [address] NAME: TOD MILAN : 90 STATUS : ADM IN PAT#: [id number] AGE: 26 ADM/REG DATE : 07/25/16 MR#: [id number] REPORT SERV DATE: 07/27/16 DICTATED BY: ZACH RIZZO DATE: 07/26/16 REPORT STATUS : Draft TRANSCRIBED BY: MODL DATE: 07/26/16 DATE OF PROCEDURE: 07/26/2016 PREOPERATIVE DIAGNOSES: 1. Gross disease. 2. Small bowel obstruction. POSTOPERATIVE DIAGNOSES: 1. Gross disease. 2. Small bowel obstruction. 3. Intraabdominal abscess. PROCEDURE: 1. Exploratory laparotomy. 2. Small-bowel resection with primary anastomosis. 3. Extensive lysis of adhesions. SURGEON: Zach Rizzo MD REPRODUCTIVE HEALTHCARE ASSISTANT: Alton Acuña MD. ANESTHETIC: General and TAP. IV FLUIDS: 1600 mL. ESTIMATED BLOOD LOSS: 50 mL. URINE OUTPUT: 175 mL. COMPLICATIONS: None. COUNTS: Correct. SPECIMEN: . CULTURES: Intraabdominal fluid. DESCRIPTION OF PROCEDURE: The patient was brought to the operating room, placed supine on the operating table. Anesthetic was administered, endotracheal intubation achieved. The abdomen was prepped and draped in a sterile fashion. A time-out was held. Incision was made from the mid upper midline down to the lower midline. Electrocautery was used to dissect down through the fascia and (inaudible due to background noise) . We were unable to fully assess his abdomen given the distention of the bowel, so we extended the incision all the way down to about 3 cm above the pubis. There were several distended loops of bowel. There were several loops of bowel adhered to the anterior abdominal wall as well as the pelvis. Extensive adhesiolysis was undertaken. We identified a large pelvic Record Of [address] [place]. [address] NAME: TOD MILAN : 90 STATUS : ADM IN PAT#: [id number] AGE: 26 ADM/REG DATE : 07/25/16 MR#: [id number] REPORT SERV DATE: 07/27/16 DICTATED BY: ZACH RIZZO DILLER DATE: 07/26/16 REPORT STATUS : Draft TRANSCRIBED BY: MARY JO DATE: 07/26/16 abscess that obscured the anatomy further. After careful adhesiolysis and drainage of this abscess with irrigation, I was able to free the small bowel from the ligament of Treitz to the terminal ilium. There was no frankly necrotic segment of bowel, but there were some serosal tears particularly in the terminal ileum that were due to the nature of the disease process and were unavoidable. A thickened narrowed segment ilium was identified to require resection and this was achieved with 2 linear staple loads and LigaSure and the specimen passed off. A jufg-[id number]-[id number] anastomosis was created with the stapler and this reinforced with 2-0 silk. We then put Lembert sutures into serosal tears in the mid jejunum. The bowel was again run and felt to be intact. The anastomosis was widely patent. The sigmoid colon and rectum were intact. NG tube was at the appropriate place of the stomach. We irrigated and assured that we had adequate hemostasis. The fascia was closed with interrupted #1 PDS superficially with noe. The patient was extubated and taken to the recovery area in stable condition. DICTATED BY: Alton Acuña MD ND/MARY JO Zach Rizzo MD / [id number] CC: Casper Dailey MD
--- NOTE | ~2016-07-25 | HP ---
History And Physical [place] [address] [facility] [place]. [address] NAME: TOD MILAN : 90 STATUS : ADM IN [facility]#: [id number] AGE: 26 ADM/REG DATE : 07/25/16 MR#: [id number] REPORT SERV DATE: 07/25/16 DICTATED BY: ZITA DAWSON DATE: 07/25/16 REPORT STATUS : Draft TRANSCRIBED BY: MODSuleiman DATE: 07/25/16 DATE OF ADMISSION: 07/25/2016 CHIEF COMPLAINT: Abdominal pain. HISTORY OF PRESENT ILLNESS: Mr. Milan is a 26-year-old male with a history of Crohn's disease and asthma, who presented to the emergency room with a complaint of abdominal pain. The patient states that his symptoms started over a week ago. He with his family had gone on a camping trip. He states that during the camping trip that he had fevers and severe abdominal pain. However, given that he did want to ruin the trip for his family, he decided to endure the pains and states he was taking Motrin to control his symptoms. The patient states upon returning back from the camping trip yesterday, he prepared dinner for his family. However, after eating, his abdominal pain started again. He said he did not present thinking that his pain would improve. However, about 4 o'clock this morning, he was awakened by severe 10/10 cramping pain, at which time he decided to present to the emergency room. Upon presentation to the emergency room, preliminary workup included a CBC and a chemistry, which noted elevated WBC of 17.0, elevated platelets of 771. The patient also had an abdominal CT scan, which noted findings concerning for obstruction with ascites and a Crohn's flare. Given these findings, Surgery team was consulted. Per Surgery team's evaluation, surgical intervention not indicated at this time, recommendation was for the patient to be managed medically with surgical intervention available if the patient fails medical management. Hospital Medicine was therefore consulted to admit the patient. At the time of my evaluation, the patient was lying in bed, in moderate discomfort, but no nausea and no vomiting. He corroborated the above story. He states that during the camping trip, he did not swim nor did he drink any water from the river. He states that he spent most of his time in the tent secondary to his abdominal pain and fever. The only significant activity that he did was that he also fished with his friends. He denied any change in diet. He reports as noted earlier intermittent fever, for which he took Motrin, but no nausea, no vomiting, no diarrhea and no chest pain, lightheadedness, or dizziness. He states that during the camping trip he was making sure to keep himself hydrated and that he was using bottled water. REVIEW OF SYSTEMS: 12-point review of systems was performed. All systems were negative, except as noted in the HPI. PAST MEDICAL HISTORY: 1. Crohn's disease. 2. Asthma. PAST SURGICAL HISTORY: The patient has not had any surgeries. SOCIAL HISTORY: The patient reports tobacco use. However, denies alcohol use. States that he uses marijuana occasionally. He lives with his girlfriend and has two children. FAMILY HISTORY: Noncontributory. History And Physical [address] [address] NAME: TOD MILAN : 90 STATUS : ADM IN [facility]#: [id number] AGE: 26 ADM/REG DATE : 07/25/16 MR#: [id number] REPORT SERV DATE: 07/25/16 DICTATED BY: ZITA DAWSON DATE: 07/25/16 REPORT STATUS : Draft TRANSCRIBED BY: MARY JO DATE: 07/25/16 ALLERGIES: THE PATIENT HAS NO KNOWN DRUG ALLERGIES. PHYSICAL EXAMINATION: VITAL SIGNS: On presentation, blood pressure 136/80, pulse of 90, respirations 18, O2 sat 99% on room air. GENERAL: The patient lying in bed, appears stated age, in mild distress. HEENT: Normocephalic and atraumatic. Extraocular motors intact. Pupils round and reactive to light and accommodation. No conjunctival pallor. No conjunctival injection. Anicteric sclerae. NECK: Trachea midline and symmetric. No JVD noted. No thyromegaly present. No lymphadenopathy palpated. CHEST: Nontender to palpation. No scars noted. CARDIOVASCULAR: Regular rate and rhythm. S1 and S2. No murmurs, rubs, or gallops. LUNGS: Clear to auscultation bilaterally. No wheezes, rales, rhonchi, or crackles. ABDOMEN: Positive bowel sounds. Tense, distended, tender to deep palpation. However, no rebound tenderness, no guarding noted. EXTREMITIES: No cyanosis, no clubbing, no edema. NEURO: Alert and oriented x3. No focal deficits appreciated. LABORATORY DATA: WBC 17.0, hemoglobin 10.8, hematocrit 31.9 with an MCV of 88.9, platelets 771. Sodium 139, potassium 4.0, chloride 102, bicarb 32, BUN 13, creatinine 0.76 with a GFR of 146, glucose 120. IMAGING: CT abdomen and pelvis without contrast, impression: Suspect obstruction with ascites, certainly consistent with reactivated Crohn's, recommend a repeat exam with IV and oral contrast. PROBLEM LIST: 1. Crohn's flare. 2. Asthma. 3. Leukocytosis. 4. Secondary thrombocythemia. 5. Urinary tract infection. PLAN: 1. We will admit the patient under Hospitalist Service for medical management. Given his symptoms, we will start him on IV Levaquin and Flagyl. We will keep the patient n.p.o. and put him on IV fluids and also control his pain. Per recommendations, we will obtain a repeat CT abdomen with IV and oral contrast to further elucidate his abdomen. 2. Leukocytosis, likely secondary to #1. We will manage as above. 3. UTI. The patient complaining of frequency and burning. We will start him on IV Levaquin. However, obtain UA and cultures prior to antibiotic initiation. 4. Asthma, stable. Continue current management. 5. Secondary thrombocythemia, unclear etiology. We will monitor. History And Physical [address] [address] NAME: TOD MILAN : 90 STATUS : ADM IN [facility]#: [id number] AGE: 26 ADM/REG DATE : 07/25/16 MR#: [id number] REPORT SERV DATE: 07/25/16 DICTATED BY: ZITA DAWSON DATE: 07/25/16 REPORT STATUS : Draft TRANSCRIBED BY: MARY JO DATE: 07/25/16 ROSI/MARY JO Zita Dawson MD / [id number] CC: Zita Dawson MD
--- NOTE | ~2016-07-25 | IDS ---
Interim Discharge Summary [facility] [address] [place]. [address] NAME: TOD MILAN : 89 STATUS : ADM IN [facility]#: [id number] AGE: 26 ADM/REG DATE : 07/25/16 MR#: [id number] REPORT SERV DATE: 08/01/16 DICTATED BY: DATE: REPORT STATUS : Draft TRANSCRIBED BY: MODL DATE: 08/01/16 ADMISSION DATE: 07/25/2016 DISCHARGE DATE: DISCHARGE DIAGNOSES: Current interim diagnoses list includes: 1. Crohn's disease. 2. Small-bowel obstruction, postop day #5. 3. Intraabdominal abscess. 4. Postop ileus. 5. Asthma in childhood. 6. Tobacco abuse. HISTORY OF PRESENT ILLNESS: For complete details of present illness, see please history and physical dictated by Dr. Johnny Cooley on 07/25/2016. In brief, the patient was admitted by Dr. Cooley for initial workup and management of abdominal pain. The patient has a recent history of Crohn's disease and has been having abdominal pain for one week. On 07/26/2016, the patient had an exploratory laparotomy with a small-bowel resection by Dr. Rizzo. The patient is currently postop day #5. The patient also had a large abdominal abscess for which he is receiving levofloxacin and metronidazole. The patient subsequently developed a postoperative ileus for which he received Reglan and Dulcolax with some resolution. The patient's NG tube was discontinued on 06/30/2016. The patient does have positive bowel sounds and is passing small amounts of gas. Has been on clear liquids, but today, has developed some abdominal distention and increased discomfort. His Reglan and Dulcolax suppositories have been restarted. We will be attempting Ensure. The patient does ambulate frequently in the hallway. The patient has continued to experience a decrease in his leukocytes, initially it was 20.4, and currently, his WBCs are 13.6. CURRENT LAB: Sodium is 139, potassium is 3.8, chloride is 105, BUN is 9, creatinine is 0.71, GFR is 150, glucose is 86, calcium is 8.3, magnesium is 1.7. WBC 13.6, hemoglobin 9.8, hematocrit 28.7, platelets 684. The patient does run a mildly high blood pressure for a 26-year-old and occasionally gets up in the 140s/70s. The patient did experience atypical chest pain with his NG tube, but had negative troponins and a normal EKG. It is anticipated that the patient will go home in the next day or two. PADMINI/MARY JO Sofia Ocampo NP / [id number] CC: Interim Discharge Summary [address] [address] NAME: TOD MILAN : 89 STATUS : ADM IN [facility]#: [id number] AGE: 26 ADM/REG DATE : 07/25/16 MR#: [id number] REPORT SERV DATE: 08/01/16 DICTATED BY: DATE: REPORT STATUS : Draft TRANSCRIBED BY: MODL DATE: 08/01/16 Casper Dailey MD
--- NOTE | ~2016-07-25 | CN ---
Consultation Report [facility] [address] [place]. [address] NAME: TOD MILAN : 89 STATUS : ADM IN [facility]#: [id number] AGE: 26 ADM/REG DATE : 07/25/16 MR#: [id number] REPORT SERV DATE: 07/27/16 DICTATED BY: ZACH RIZZO DATE: 07/26/16 REPORT STATUS : Draft TRANSCRIBED BY: MODL DATE: 07/26/16 DATE OF CONSULTATION: 07/25/2016 CONSULT SERVICE: General Surgery. REASON FOR CONSULTATION: Small bowel obstruction. HISTORY OF PRESENT ILLNESS: The patient is a 26-year-old male with a recent diagnosis of Crohn's disease, who presents third time this month to the emergency department with abdominal pain, fevers, nausea and vomiting. This episode began two to three days ago with abdominal pain and followed by the other symptoms. He last had a bowel movement two days ago and notes that was loose. He had flatus earlier in the day. His nausea has progressively worsened since the day prior to presentation. His prior admissions had resolution of his partial small bowel obstruction with a course of Solu-Medrol, which was then converted over to budesonide for outpatient therapy. The patient states he was compliant with this. He has not been on any other maintenance medications. PAST MEDICAL HISTORY: Asthma, Crohn's. PAST SURGICAL HISTORY: None. SOCIAL HISTORY: Positive for tobacco use. No alcohol use. FAMILY HISTORY: Noncontributory. MEDICATIONS: Reviewed. ALLERGIES: REVIEWED. REVIEW OF SYSTEMS: A 12-point review of systems was conducted and is negative except as per HPI. PHYSICAL EXAMINATION: VITAL SIGNS: Temp 98.2 degrees Fahrenheit, pulse 90, blood pressure 136/80, respiratory rate 18, O2 saturation 99% on room air. HEENT: Normocephalic, atraumatic. Pupils are equal, round, and reactive to light. Extraocular movements intact. Dry mucous membranes. NECK: Trachea is midline. CHEST: Clear to auscultation bilaterally. HEART: Regular rate and rhythm. ABDOMEN: Very distended. Tender to palpation, greater in bilateral lower quadrants, would not have peritonitis. He was very distractible during his exam. RECTAL: Deferred. GENITALIA: Deferred. EXTREMITIES: Moves all. Consultation Report [facility] [address] [place]. [address] NAME: TOD MILAN : 90 STATUS : ADM IN PAT#: [id number] AGE: 26 ADM/REG DATE : 07/25/16 MR#: [id number] REPORT SERV DATE: 07/27/16 DICTATED BY: ZACH RIZZO DATE: 07/26/16 REPORT STATUS : Draft TRANSCRIBED BY: MODL DATE: 07/26/16 NEUROLOGIC: Grossly intact. IMAGING: CT of the abdomen and pelvis shows distention of small bowel and colon. Substantial free fluid in the pelvis, but no free air. Review of small-bowel follow-through from 07/05/2016 showed narrowing of lumen of the terminal ileum. LABORATORY DATA: White blood cell count 17, platelets 771, neutrophils 80%. CMP within normal limits. ASSESSMENT AND PLAN: This patient is a 26-year-old male with recurring obstructive symptoms secondary to Crohn's disease. Agree with admission to Internal Medicine and to consult GI to evaluate. Keep him n.p.o., place an NG tube to wall suction. Give maintenance IV fluids and serial abdominal exams for now. He is a high risk for medical management failure and surgical intervention. CANDICE/MARY JO Zach Rizzo MD / [id number] CC: Zach Rizzo MD
--- NOTE | ~2016-07-25 | DS ---
Discharge Summary [place] [address] [place]. [address] NAME: TOD MILAN : 89 STATUS : DIS IN PAT#: [id number] AGE: 26 ADM/REG DATE : 07/25/16 MR#: [id number] REPORT SERV DATE: 08/04/16 DICTATED BY: ZITA DAWSON DATE: 08/03/16 REPORT STATUS : Draft TRANSCRIBED BY: MODL DATE: 08/03/16 ADMISSION DATE: 07/25/2016 DISCHARGE DATE: 08/03/2016 This is in addition to interim discharge summary dictated by Dr. Dailey on 08/01/2016. I assumed care of the patient on 08/02/2016. At that time, the patient was status post exploratory laparotomy. This was postoperative day 7. The patient has remained hemodynamically stable. He was re-evaluated by Surgery today and cleared for discharge given his hemodynamic stability and resolution of his post obstructive ileus. Given that patient has remained hemodynamically stable and has been cleared by Surgery, the patient will be discharged home today. Plan has been discussed with the patient, who voices understanding and is agreeable with this plan. DISCHARGE EXAMINATION: VITAL SIGNS: Blood pressure 130/71 with a pulse of 78, respirations 16, O2 saturation 100% on room air. GENERAL: The patient lying in bed, in no acute distress. Appears stated age. HEENT: Normocephalic and atraumatic. Extraocular motors intact. Moist oral mucosa. NECK: Trachea midline and symmetric. No thyromegaly noted. No JVD present. CHEST: Nontender to palpation. CARDIOVASCULAR: Regular rate and rhythm. S1, S2. No murmurs, rubs, or gallops. LUNGS: Clear to auscultation bilaterally. No wheezing, rales, rhonchi. ABDOMEN: Positive bowel sounds. Clean well healing surgical incision scar noted. No tenderness to palpation. No guarding and no rebound tenderness. EXTREMITIES: No cyanosis, no clubbing, no edema. NEUROLOGIC: Alert and oriented x3. No focal deficits appreciated. DISCHARGE MEDICATIONS: 1. Budesonide 9 mg p.o. daily. 2. Wells 10/325 mg tab q.4 hours p.r.n. 3. Multivitamin tablet. All other information in the interim discharge summary remains the same. DISPOSITION: The patient will be discharged home to follow up with Surgery in two weeks and also, follow up with GI. ACTIVITY: As tolerated. DIET: As tolerated. Greater than 30 minutes was spent providing counseling, dictation of note, medication reconciliation. DICTATED BY: Zita Dawson MD Discharge Summary [address] [address] NAME: TOD MILAN : 89 STATUS : DIS IN PAT#: [id number] AGE: 26 ADM/REG DATE : 07/25/16 MR#: [id number] REPORT SERV DATE: 08/04/16 DICTATED BY: ZITA DAWSON DATE: 08/03/16 REPORT STATUS : Draft TRANSCRIBED BY: MARY JO DATE: 08/03/16 ROSI/MARY JO Zita Dawson MD / [id number] CC: Zita Dawson MD
[2016-07-25 06:19] LABS: BASOPHILS 0.1 %; BASOPHILS ABSOLUTE 0.02 10/3/uL (0.0-0.16); EOSINOPHILS 0 %; ER CBC TAT 0 Hrs 12 Mins; HEMATOCRIT 31.9 % (40.0-51.0); HEMOGLOBIN 10.8 g/dL (13.6-17.8); IMMATURE GRANULOCYTES 0.4 %; IMMATURE GRANULOCYTES ABSOLUTE 0.07 10/3/uL (0.0-0.11); LYMPHOCYTES 12.7 %; LYMPHOCYTES ABSOLUTE 2.16 10/3/uL (0.67-4.30); MEAN CORPUS HGB CONC 33.9 g/dL (32.0-36.0); MEAN CORPUSCULAR HEMOGLOB 30.1 pg (26.0-34.0); MEAN CORPUSCULAR VOLUME 88.9 fL (80-100); MEAN PLATELET VOLUME 8.3 fL (9.2-13.0); MONOCYTES 6.3 %; MONOCYTES ABSOLUTE 1.08 10/3/uL (0.21-1.20); NEUTROPHILS 80.5 %; NEUTROPHILS ABSOLUTE 13.68 10/3/uL (2.02-8.40); PLATELET COUNT 771 10/3/uL (150-400); RBC DISTRIBUTION WIDTH 12.9 % (12.0-16.0); RED CELL COUNT 3.59 10/6/uL (4.7-6.1)
[2016-07-25 06:20] LABS: MANUAL DIFF NO %
[2016-07-25 06:35] LABS: ALBUMIN 2.3 G/DL (3.5-5.0); BUN (BLOOD UREA NITROGEN) 13 MG/DL (6-23); CALCIUM, SERUM 8.8 MG/DL (8.5-10.4); CHLORIDE, SERUM 102 MMOL/L (96-112); CO2 (CARBON DIOXIDE) 32 MMOL/L (24-34); CREATININE 0.76 MG/DL (0.70-1.30); GFR AFRICAN AMERICAN 146 ML/MIN (>=60); GFR NON AFRICAN AMERICAN 126 ML/MIN (>=60); SGPT(ALT) 18 U/L (5-65); SODIUM, SERUM 139 MMOL/L (135-148); TOTAL PROTEIN 6.9 G/DL (6.0-8.5)
[2016-07-25 06:36] LABS: A/G RATIO 0.5 (0.7-1.9); ALKALINE PHOSPHATASE 77 U/L (45-117); BAND NEUTROPHILS 10 %; ER DIFF TAT 0 Hrs 29 Mins; GLOBULIN 4.6 G/DL (2.5-4.1); GLUCOSE, SERUM 120 MG/DL (60-99); LYMPHOCYTES 2 %; LYMPHOCYTES ABSOLUTE (CALC) 0.34 10/3/uL (0.67-4.30); MONOCYTES 9 %; MONOCYTES ABSOLUTE (CALC) 1.53 10/3/uL (0.21-1.20); NEUTROPHILS ABSOLUTE (CALC) 15.13 10/3/uL (2.02-8.40); SEGMENTED NEUTROPHIL (0) 79 %; SGOT(AST) 18 U/L (5-40); TOTAL BILIRUBIN 0.2 MG/DL (0-1.2); TOTAL NUCLEATED CELLS 100
[2016-07-25 06:40] LABS: POLYCHROMASIA 1+ (2-5/OIF) (0-1/OIF)
[~2016-07-25 07:04] MED LIST changes: +DSS PO; +NORCO1 TA1 PO; +SENTAB PO
[2016-07-25] MEDS ORDERED: MOTRIN IB200 MG PO (07:39)
[2016-07-25] MEDS ORDERED: CENTRUM PO (07:40)
[2016-07-25] MEDS ORDERED: TYLENOL PM PO (07:40)
[2016-07-25 09:59] LABS: ASCORBIC ACID (UR NOT ORDER) 20 (NEG); BILIRUBIN, URINE NEGATIVE (NEG); ER URINALYSIS TAT 0 Hrs 09 Mins; KETONE, URINE NEGATIVE (NEG); LEUKOCYTE ESTERASE(NOT OR NEG (NEG); NITRITE (URINE) NEG (NEG); WBC (NOT ORDERED) (RFLEX) 3 (0-5)
[2016-07-26 06:36] LABS: HEMOGLOBIN 10.7 g/dL (13.6-17.8); MEAN CORPUS HGB CONC 33.4 g/dL (32.0-36.0); MEAN CORPUSCULAR HEMOGLOB 30.4 pg (26.0-34.0); MEAN CORPUSCULAR VOLUME 90.9 fL (80-100); MEAN PLATELET VOLUME 8.5 fL (9.2-13.0); PLATELET COUNT 749 10/3/uL (150-400); RBC DISTRIBUTION WIDTH 13.4 % (12.0-16.0); RED CELL COUNT 3.52 10/6/uL (4.7-6.1); WHITE BLOOD CELLS 14.4 10/3/uL (4.5-10.5)
[2016-07-26 06:37] LABS: MANUAL DIFF YES %
[2016-07-26 06:39] LABS: INTERNATIONAL NORMAL RATI 1.5 UNITS (-); PROTIME (NOT ORD) 17.7 SEC (12.0-14.5)
[2016-07-26 06:40] LABS: PARTIAL THROMBO TIME 42.2 SEC (22.5-37.2)
[2016-07-26 06:47] LABS: A/G RATIO 0.5 (0.7-1.9); ALBUMIN 2.1 G/DL (3.5-5.0); ALKALINE PHOSPHATASE 71 U/L (45-117); BUN (BLOOD UREA NITROGEN) 11 MG/DL (6-23); CALCIUM, SERUM 8.9 MG/DL (8.5-10.4); CHLORIDE, SERUM 103 MMOL/L (96-112); GFR AFRICAN AMERICAN 143 ML/MIN (>=60); GFR NON AFRICAN AMERICAN 123 ML/MIN (>=60); GLOBULIN 4.3 G/DL (2.5-4.1); POTASSIUM, SERUM 4.4 MMOL/L (3.5-5.3); SGOT(AST) 17 U/L (5-40); SGPT(ALT) 15 U/L (5-65); SODIUM, SERUM 137 MMOL/L (135-148); TOTAL BILIRUBIN 0.4 MG/DL (0-1.2); TOTAL PROTEIN 6.4 G/DL (6.0-8.5)
[2016-07-26 06:49] LABS: CO2 (CARBON DIOXIDE) 26 MMOL/L (24-34); GLUCOSE, SERUM 68 MG/DL (60-99)
[2016-07-26 06:58] LABS: BAND NEUTROPHILS 1 %; LYMPHOCYTES 3 %; LYMPHOCYTES ABSOLUTE (CALC) 0.43 10/3/uL (0.67-4.30); MONOCYTES 6 %; MONOCYTES ABSOLUTE (CALC) 0.86 10/3/uL (0.21-1.20); SEGMENTED NEUTROPHIL (0) 90 %; TOTAL NUCLEATED CELLS 100
[2016-07-26 06:59] LABS: GIANT PLATELET OCC; POLYCHROMASIA 1+ (2-5/OIF) (0-1/OIF)
[2016-07-26 07:33] LABS: PROCALCITONIN 1.06 ng/mL (<0.5)
[2016-07-27 01:39] LABS: BASOPHILS 0.2 %; BASOPHILS ABSOLUTE 0.05 10/3/uL (0.0-0.16); EOSINOPHILS 0 %; HEMATOCRIT 35.1 % (40.0-51.0); HEMOGLOBIN 11.8 g/dL (13.6-17.8); IMMATURE GRANULOCYTES 0.4 %; IMMATURE GRANULOCYTES ABSOLUTE 0.08 10/3/uL (0.0-0.11); LYMPHOCYTES 6.2 %; LYMPHOCYTES ABSOLUTE 1.32 10/3/uL (0.67-4.30); MANUAL DIFF NO %; MEAN CORPUS HGB CONC 33.6 g/dL (32.0-36.0); MEAN CORPUSCULAR VOLUME 89.3 fL (80-100); MEAN PLATELET VOLUME 8.1 fL (9.2-13.0); MONOCYTES 5.4 %; MONOCYTES ABSOLUTE 1.16 10/3/uL (0.21-1.20); NEUTROPHILS 87.8 %; NEUTROPHILS ABSOLUTE 18.84 10/3/uL (2.02-8.40); PLATELET COUNT 726 10/3/uL (150-400); RBC DISTRIBUTION WIDTH 13.1 % (12.0-16.0); RED CELL COUNT 3.93 10/6/uL (4.7-6.1); WHITE BLOOD CELLS 21.5 10/3/uL (4.5-10.5)
[2016-07-27 01:56] LABS: BUN (BLOOD UREA NITROGEN) 9 MG/DL (6-23); CALCIUM, SERUM 8.4 MG/DL (8.5-10.4); CHLORIDE, SERUM 103 MMOL/L (96-112); CREATININE 0.87 MG/DL (0.70-1.30); GFR AFRICAN AMERICAN 138 ML/MIN (>=60); GFR NON AFRICAN AMERICAN 119 ML/MIN (>=60); POTASSIUM, SERUM 5.1 MMOL/L (3.5-5.3); SODIUM, SERUM 140 MMOL/L (135-148)
[2016-07-27 01:57] LABS: CO2 (CARBON DIOXIDE) 31 MMOL/L (24-34); GLUCOSE, SERUM 192 MG/DL (60-99)
[2016-07-28 07:39] LABS: BUN (BLOOD UREA NITROGEN) 10 MG/DL (6-23); CALCIUM, SERUM 8.6 MG/DL (8.5-10.4); CHLORIDE, SERUM 102 MMOL/L (96-112); CO2 (CARBON DIOXIDE) 30 MMOL/L (24-34); CREATININE 0.69 MG/DL (0.70-1.30); GFR AFRICAN AMERICAN 152 ML/MIN (>=60); GFR NON AFRICAN AMERICAN 131 ML/MIN (>=60); GLUCOSE, SERUM 96 MG/DL (60-99); POTASSIUM, SERUM 4.3 MMOL/L (3.5-5.3); SODIUM, SERUM 137 MMOL/L (135-148)
[2016-07-28 07:50] LABS: BASOPHILS 0.2 %; BASOPHILS ABSOLUTE 0.04 10/3/uL (0.0-0.16); EOSINOPHILS 0 %; HEMOGLOBIN 9.5 g/dL (13.6-17.8); IMMATURE GRANULOCYTES 0.4 %; IMMATURE GRANULOCYTES ABSOLUTE 0.08 10/3/uL (0.0-0.11); LYMPHOCYTES 5.8 %; LYMPHOCYTES ABSOLUTE 1.18 10/3/uL (0.67-4.30); MEAN CORPUS HGB CONC 33.1 g/dL (32.0-36.0); MEAN CORPUSCULAR HEMOGLOB 29.2 pg (26.0-34.0); MEAN CORPUSCULAR VOLUME 88.3 fL (80-100); MEAN PLATELET VOLUME 8.8 fL (9.2-13.0); MONOCYTES 9.2 %; MONOCYTES ABSOLUTE 1.87 10/3/uL (0.21-1.20); NEUTROPHILS 84.4 %; PLATELET COUNT 610 10/3/uL (150-400); RBC DISTRIBUTION WIDTH 13.1 % (12.0-16.0); RED CELL COUNT 3.25 10/6/uL (4.7-6.1); WHITE BLOOD CELLS 20.4 10/3/uL (4.5-10.5)
[2016-07-28 07:51] LABS: HEMATOCRIT 28.7 % (40.0-51.0); MANUAL DIFF NO %
[2016-07-29 06:12] LABS: BUN (BLOOD UREA NITROGEN) 12 MG/DL (6-23); CALCIUM, SERUM 8.4 MG/DL (8.5-10.4); CHLORIDE, SERUM 102 MMOL/L (96-112); CO2 (CARBON DIOXIDE) 30 MMOL/L (24-34); CREATININE 0.66 MG/DL (0.70-1.30); GFR AFRICAN AMERICAN 155 ML/MIN (>=60); GFR NON AFRICAN AMERICAN 133 ML/MIN (>=60); POTASSIUM, SERUM 3.8 MMOL/L (3.5-5.3); SODIUM, SERUM 139 MMOL/L (135-148)
[2016-07-29 06:13] LABS: GLUCOSE, SERUM 74 MG/DL (60-99)
[2016-07-29 06:17] LABS: HEMATOCRIT 28.9 % (40.0-51.0); HEMOGLOBIN 9.6 g/dL (13.6-17.8); MEAN CORPUS HGB CONC 33.2 g/dL (32.0-36.0); MEAN CORPUSCULAR HEMOGLOB 29.4 pg (26.0-34.0); MEAN CORPUSCULAR VOLUME 88.4 fL (80-100); MEAN PLATELET VOLUME 8.5 fL (9.2-13.0); RED CELL COUNT 3.27 10/6/uL (4.7-6.1); WHITE BLOOD CELLS 16.1 10/3/uL (4.5-10.5)
[2016-07-29 06:19] LABS: PLATELET COUNT 752 10/3/uL (150-400)
[2016-07-29 06:23] LABS: MANUAL DIFF YES %
[2016-07-29 07:10] LABS: BAND NEUTROPHILS 3 %; LYMPHOCYTES 14 %; LYMPHOCYTES ABSOLUTE (CALC) 2.25 10/3/uL (0.67-4.30); MONOCYTES 4 %; MONOCYTES ABSOLUTE (CALC) 0.64 10/3/uL (0.21-1.20); SEGMENTED NEUTROPHIL (0) 79 %; TOTAL NUCLEATED CELLS 100
[2016-07-29 07:11] LABS: GIANT PLATELET RARE
[2016-07-29 07:12] LABS: MACROCYTES 1+ (5-10/OIF) (0-5/OIF)
[2016-07-30 06:20] LABS: BASOPHILS 0.3 %; BASOPHILS ABSOLUTE 0.04 10/3/uL (0.0-0.16); EOSINOPHILS 0.1 %; EOSINOPHILS ABSOLUTE 0.01 10/3/uL (0.0-0.53); HEMATOCRIT 28.6 % (40.0-51.0); HEMOGLOBIN 9.6 g/dL (13.6-17.8); IMMATURE GRANULOCYTES 0.4 %; IMMATURE GRANULOCYTES ABSOLUTE 0.06 10/3/uL (0.0-0.11); LYMPHOCYTES 7.8 %; LYMPHOCYTES ABSOLUTE 1.15 10/3/uL (0.67-4.30); MEAN CORPUS HGB CONC 33.6 g/dL (32.0-36.0); MEAN CORPUSCULAR HEMOGLOB 29.5 pg (26.0-34.0); MEAN PLATELET VOLUME 8.2 fL (9.2-13.0); MONOCYTES 11.6 %; NEUTROPHILS 79.8 %; NEUTROPHILS ABSOLUTE 11.73 10/3/uL (2.02-8.40); PLATELET COUNT 693 10/3/uL (150-400); RED CELL COUNT 3.25 10/6/uL (4.7-6.1); WHITE BLOOD CELLS 14.7 10/3/uL (4.5-10.5)
[2016-07-30 06:21] LABS: MANUAL DIFF NO %
[2016-07-30 06:28] LABS: BUN (BLOOD UREA NITROGEN) 14 MG/DL (6-23); CALCIUM, SERUM 8.4 MG/DL (8.5-10.4); CHLORIDE, SERUM 104 MMOL/L (96-112); CO2 (CARBON DIOXIDE) 28 MMOL/L (24-34); CREATININE 0.57 MG/DL (0.70-1.30); GFR AFRICAN AMERICAN 164 ML/MIN (>=60); GFR NON AFRICAN AMERICAN 142 ML/MIN (>=60); GLUCOSE, SERUM 82 MG/DL (60-99); POTASSIUM, SERUM 3.9 MMOL/L (3.5-5.3); SODIUM, SERUM 140 MMOL/L (135-148)
[2016-07-31 09:28] LABS: HEMOGLOBIN 10.8 g/dL (13.6-17.8); MEAN CORPUS HGB CONC 32.8 g/dL (32.0-36.0); MEAN CORPUSCULAR HEMOGLOB 28.9 pg (26.0-34.0); MEAN PLATELET VOLUME 8.3 fL (9.2-13.0); RED CELL COUNT 3.74 10/6/uL (4.7-6.1); WHITE BLOOD CELLS 17.2 10/3/uL (4.5-10.5)
[2016-07-31 09:30] LABS: HEMATOCRIT 32.9 % (40.0-51.0); MANUAL DIFF YES %; PLATELET COUNT 817 10/3/uL (150-400)
[2016-07-31 09:42] LABS: BUN (BLOOD UREA NITROGEN) 13 MG/DL (6-23); CALCIUM, SERUM 8.6 MG/DL (8.5-10.4); CHLORIDE, SERUM 107 MMOL/L (96-112); CO2 (CARBON DIOXIDE) 26 MMOL/L (24-34); CREATININE 0.74 MG/DL (0.70-1.30); GFR AFRICAN AMERICAN 148 ML/MIN (>=60); GFR NON AFRICAN AMERICAN 127 ML/MIN (>=60); SODIUM, SERUM 135 MMOL/L (135-148)
[2016-07-31 09:43] LABS: GLUCOSE, SERUM 102 MG/DL (60-99)
[2016-07-31 10:10] LABS: BAND NEUTROPHILS 2 %; EOSINOPHILS 1 %; EOSINOPHILS ABSOLUTE (CALC) 0.17 10/3/uL (0.0-0.53); LYMPHOCYTES 15 %; LYMPHOCYTES ABSOLUTE (CALC) 2.58 10/3/uL (0.67-4.30); MONOCYTES 6 %; MONOCYTES ABSOLUTE (CALC) 1.03 10/3/uL (0.21-1.20); NEUTROPHILS ABSOLUTE (CALC) 13.42 10/3/uL (2.02-8.40); SEGMENTED NEUTROPHIL (0) 76 %; TOTAL NUCLEATED CELLS 100; TOXIC GRANULATION 1+; VACUOLATED NEUTROPHILES OCC
[2016-07-31 10:11] LABS: HELMET CELLS OCC (0-2/OIF); POLYCHROMASIA 1+ (2-5/OIF) (0-1/OIF); TEARDROP SHAPED RBCS OCC (0-2/OIF)
[2016-08-01 07:13] LABS: BASOPHILS 0.1 %; BASOPHILS ABSOLUTE 0.02 10/3/uL (0.0-0.16); EOSINOPHILS 0.8 %; EOSINOPHILS ABSOLUTE 0.11 10/3/uL (0.0-0.53); HEMOGLOBIN 9.8 g/dL (13.6-17.8); IMMATURE GRANULOCYTES 0.6 %; IMMATURE GRANULOCYTES ABSOLUTE 0.08 10/3/uL (0.0-0.11); LYMPHOCYTES 10.1 %; LYMPHOCYTES ABSOLUTE 1.37 10/3/uL (0.67-4.30); MEAN CORPUS HGB CONC 34.1 g/dL (32.0-36.0); MEAN CORPUSCULAR HEMOGLOB 29.7 pg (26.0-34.0); MEAN PLATELET VOLUME 8.4 fL (9.2-13.0); MONOCYTES 11.8 %; MONOCYTES ABSOLUTE 1.61 10/3/uL (0.21-1.20); NEUTROPHILS 76.6 %; NEUTROPHILS ABSOLUTE 10.44 10/3/uL (2.02-8.40); PLATELET COUNT 684 10/3/uL (150-400); WHITE BLOOD CELLS 13.6 10/3/uL (4.5-10.5)
[2016-08-01 07:17] LABS: HEMATOCRIT 28.7 % (40.0-51.0); MANUAL DIFF NO %
[2016-08-01 07:25] LABS: BUN (BLOOD UREA NITROGEN) 9 MG/DL (6-23); CALCIUM, SERUM 8.3 MG/DL (8.5-10.4); CHLORIDE, SERUM 105 MMOL/L (96-112); CO2 (CARBON DIOXIDE) 30 MMOL/L (24-34); CREATININE 0.71 MG/DL (0.70-1.30); GFR AFRICAN AMERICAN 150 ML/MIN (>=60); GFR NON AFRICAN AMERICAN 129 ML/MIN (>=60); GLUCOSE, SERUM 84 MG/DL (60-99); POTASSIUM, SERUM 3.8 MMOL/L (3.5-5.3); SODIUM, SERUM 139 MMOL/L (135-148)
[2016-08-02 06:35] LABS: BASOPHILS 0.1 %; BASOPHILS ABSOLUTE 0.01 10/3/uL (0.0-0.16); EOSINOPHILS 0.4 %; EOSINOPHILS ABSOLUTE 0.05 10/3/uL (0.0-0.53); HEMATOCRIT 29.5 % (40.0-51.0); IMMATURE GRANULOCYTES 0.5 %; IMMATURE GRANULOCYTES ABSOLUTE 0.07 10/3/uL (0.0-0.11); LYMPHOCYTES 8.5 %; LYMPHOCYTES ABSOLUTE 1.09 10/3/uL (0.67-4.30); MANUAL DIFF NO %; MEAN CORPUS HGB CONC 33.9 g/dL (32.0-36.0); MEAN CORPUSCULAR HEMOGLOB 29.5 pg (26.0-34.0); MEAN PLATELET VOLUME 8.4 fL (9.2-13.0); MONOCYTES 11.8 %; NEUTROPHILS 78.7 %; NEUTROPHILS ABSOLUTE 10.04 10/3/uL (2.02-8.40); PLATELET COUNT 740 10/3/uL (150-400); RBC DISTRIBUTION WIDTH 13.3 % (12.0-16.0); RED CELL COUNT 3.39 10/6/uL (4.7-6.1); WHITE BLOOD CELLS 12.8 10/3/uL (4.5-10.5)
[2016-08-02 06:48] LABS: BUN (BLOOD UREA NITROGEN) 6 MG/DL (6-23); CALCIUM, SERUM 8.3 MG/DL (8.5-10.4); CHLORIDE, SERUM 103 MMOL/L (96-112); CO2 (CARBON DIOXIDE) 30 MMOL/L (24-34); CREATININE 0.72 MG/DL (0.70-1.30); GFR AFRICAN AMERICAN 149 ML/MIN (>=60); GFR NON AFRICAN AMERICAN 129 ML/MIN (>=60); POTASSIUM, SERUM 3.5 MMOL/L (3.5-5.3); SODIUM, SERUM 135 MMOL/L (135-148)
[2016-08-02 06:50] LABS: GLUCOSE, SERUM 102 MG/DL (60-99)
[2016-08-02 07:45] LABS: PROCALCITONIN 0.34 ng/mL (<0.5)
[2016-08-03 06:37] LABS: BASOPHILS 0.1 %; BASOPHILS ABSOLUTE 0.01 10/3/uL (0.0-0.16); EOSINOPHILS 0.7 %; EOSINOPHILS ABSOLUTE 0.08 10/3/uL (0.0-0.53); HEMATOCRIT 26.9 % (40.0-51.0); HEMOGLOBIN 9.1 g/dL (13.6-17.8); IMMATURE GRANULOCYTES 0.5 %; IMMATURE GRANULOCYTES ABSOLUTE 0.06 10/3/uL (0.0-0.11); LYMPHOCYTES 9.7 %; LYMPHOCYTES ABSOLUTE 1.16 10/3/uL (0.67-4.30); MEAN CORPUS HGB CONC 33.8 g/dL (32.0-36.0); MEAN CORPUSCULAR HEMOGLOB 29.4 pg (26.0-34.0); MEAN CORPUSCULAR VOLUME 87.1 fL (80-100); MEAN PLATELET VOLUME 8.3 fL (9.2-13.0); MONOCYTES 15.6 %; MONOCYTES ABSOLUTE 1.86 10/3/uL (0.21-1.20); NEUTROPHILS 73.4 %; NEUTROPHILS ABSOLUTE 8.75 10/3/uL (2.02-8.40); RBC DISTRIBUTION WIDTH 13.5 % (12.0-16.0); RED CELL COUNT 3.09 10/6/uL (4.7-6.1); WHITE BLOOD CELLS 11.9 10/3/uL (4.5-10.5)
[2016-08-03 06:38] LABS: MANUAL DIFF NO %; PLATELET COUNT 718 10/3/uL (150-400)
[2016-08-03 06:56] LABS: A/G RATIO 0.4 (0.7-1.9); ALBUMIN 1.7 G/DL (3.5-5.0); ALKALINE PHOSPHATASE 48 U/L (45-117); BUN (BLOOD UREA NITROGEN) 8 MG/DL (6-23); CALCIUM, SERUM 8.2 MG/DL (8.5-10.4); CHLORIDE, SERUM 107 MMOL/L (96-112); CO2 (CARBON DIOXIDE) 31 MMOL/L (24-34); CREATININE 0.62 MG/DL (0.70-1.30); GFR AFRICAN AMERICAN 159 ML/MIN (>=60); GFR NON AFRICAN AMERICAN 137 ML/MIN (>=60); GLOBULIN 3.9 G/DL (2.5-4.1); GLUCOSE, SERUM 85 MG/DL (60-99); POTASSIUM, SERUM 3.9 MMOL/L (3.5-5.3); SGOT(AST) 24 U/L (5-40); SGPT(ALT) 15 U/L (5-65); SODIUM, SERUM 141 MMOL/L (135-148); TOTAL BILIRUBIN 0.2 MG/DL (0-1.2); TOTAL PROTEIN 5.6 G/DL (6.0-8.5)
[2016-08-03] MEDS ORDERED: PCET PO (14:45)
== END 2016-08-03 15:46 | disposition home or self-care (01) | DRG 329 ==
LOC: ER 07:04 → 5SO 09:15
PROVIDERS: Hospitalist; Nurse Practitioner Family; Specialist; Student in an Organized Health Care Education/Training Program
PROC: 0DTB0ZZ Resection of Ileum, Open Approach (ICD-10-PCS; principal; 2016-07-25)
PROC: 0DN80ZZ Release Small Intestine, Open Approach (ICD-10-PCS; 2016-07-25)
DX: K50.912 Crohn's disease, unspecified, with intestinal obstruction (principal); K65.8 Other peritonitis; K65.1 Peritoneal abscess; D69.59 Other secondary thrombocytopenia; K56.7 Ileus, unspecified; N39.0 Urinary tract infection, site not specified; K91.89 Other postprocedural complications and disorders of digestive system; J45.909 Unspecified asthma, uncomplicated; F17.210 Nicotine dependence, cigarettes, uncomplicated; F12.90 Cannabis use, unspecified, uncomplicated; K66.0 Peritoneal adhesions (postprocedural) (postinfection)
CPT/HCPCS: 74000; 74176; 80048; 80053; 81001; 83690; 83735; 84145; 84484; 85025; 85610; 85730; 87015; 87070; 87075; 87077; 87102; 87116; 87186; 87205; 88307; 93005; 96374; 99285; A9270-GY; C9113; J1170; J1956; J2250; J2270; J2370; J2405; J2710; J2765; J2795; J3010; J3475; P9045

== ENCOUNTER 2016-08-04 11:11 | Emergency (ER) | payer OTHER ==
[~2016-08-04 11:11] MED LIST changes: +CENTRUM PO; +MOTRIN IB200 MG PO; +PCET PO; +TYLENOL PM PO
== END 2016-08-04 11:35 | disposition home or self-care (01) ==
LOC: ER 11:11
DX: T81.30XA Disruption of wound, unspecified, initial encounter (principal); J45.909 Unspecified asthma, uncomplicated; F17.200 Nicotine dependence, unspecified, uncomplicated; Z79.899 Other long term (current) drug therapy
CPT/HCPCS: 99282

== ENCOUNTER 2016-08-17 22:52 | Emergency (ER) | payer OTHER ==
[2016-08-17 23:29] LABS: BASOPHILS 0.2 %; BASOPHILS ABSOLUTE 0.02 10/3/uL (0.0-0.16); EOSINOPHILS 1.9 %; EOSINOPHILS ABSOLUTE 0.16 10/3/uL (0.0-0.53); ER CBC TAT 0 Hrs 05 Mins; HEMATOCRIT 34.2 % (40.0-51.0); IMMATURE GRANULOCYTES 0.5 %; IMMATURE GRANULOCYTES ABSOLUTE 0.04 10/3/uL (0.0-0.11); LYMPHOCYTES 23.6 %; LYMPHOCYTES ABSOLUTE 2.03 10/3/uL (0.67-4.30); MEAN CORPUS HGB CONC 32.2 g/dL (32.0-36.0); MEAN CORPUSCULAR HEMOGLOB 30.2 pg (26.0-34.0); MEAN PLATELET VOLUME 8.5 fL (9.2-13.0); MONOCYTES 12.5 %; MONOCYTES ABSOLUTE 1.07 10/3/uL (0.21-1.20); NEUTROPHILS 61.3 %; NEUTROPHILS ABSOLUTE 5.27 10/3/uL (2.02-8.40); PLATELET COUNT 503 10/3/uL (150-400); RBC DISTRIBUTION WIDTH 17.4 % (12.0-16.0); RED CELL COUNT 3.64 10/6/uL (4.7-6.1); WHITE BLOOD CELLS 8.6 10/3/uL (4.5-10.5)
[2016-08-17 23:30] LABS: MANUAL DIFF NO %
[2016-08-17 23:45] LABS: BUN (BLOOD UREA NITROGEN) 9 MG/DL (6-23); CHLORIDE, SERUM 103 MMOL/L (96-112); CO2 (CARBON DIOXIDE) 32 MMOL/L (24-34); CREATININE 0.83 MG/DL (0.70-1.30); GFR AFRICAN AMERICAN 141 ML/MIN (>=60); GFR NON AFRICAN AMERICAN 121 ML/MIN (>=60); GLUCOSE, SERUM 77 MG/DL (60-99); POTASSIUM, SERUM 4.4 MMOL/L (3.5-5.3); SGOT(AST) 21 U/L (5-40); SGPT(ALT) 38 U/L (5-65); SODIUM, SERUM 140 MMOL/L (135-148); TOTAL BILIRUBIN 0.2 MG/DL (0-1.2)
[2016-08-17 23:47] LABS: A/G RATIO 0.6 (0.7-1.9); ALBUMIN 2.9 G/DL (3.5-5.0); ALKALINE PHOSPHATASE 105 U/L (45-117); CALCIUM, SERUM 9.3 MG/DL (8.5-10.4); GLOBULIN 4.9 G/DL (2.5-4.1); TOTAL PROTEIN 7.8 G/DL (6.0-8.5)
== END 2016-08-18 04:10 | disposition left against medical advice (07) ==
LOC: ER 22:52
PROVIDERS: Emergency Medicine
DX: R10.9 Unspecified abdominal pain (principal); Z53.21 Procedure and treatment not carried out due to patient leaving prior to being seen by health care provider
CPT/HCPCS: 80053; 81001; 83690; 85025

== ENCOUNTER 2016-08-19 21:39 | Inpatient (IN) | payer OTHER ==
--- NOTE | ~2016-08-19 | DS ---
Discharge Summary [place] [address] [facility] [place]. [address] NAME: TOD HEMPHILL : [birth year] STATUS : DIS IN PAT#: [id number] AGE: 26 ADM/REG DATE : 08/20/16 MR#: [id number] REPORT SERV DATE: 08/23/16 DICTATED BY: RAUL WRIGHT DATE: 08/23/16 REPORT STATUS : Draft TRANSCRIBED BY: MARY JO DATE: 08/23/16 ADMISSION DATE: 08/20/2016 DISCHARGE DATE: 08/22/2016 DISCHARGE DIAGNOSES: 1. Crohn's exacerbation. 2. Wedge-shaped liver abnormality on CT and confirmed on MRI. 3. Anemia. 4. Recent bowel obstruction, status post resection by Dr. Rizzo. CONSULTATIONS: Dr. Rizzo and Dr. High. DISPOSITION: Discharged home. DISCHARGE MEDICATIONS: Per GI, Levaquin and Flagyl were discontinued; wifo-ltn-edvedmb Colace 100 mg one tablet p.o. b.i.d.; Advil xrmi-ojd-xyfczzx per derrick worker well service's instructions; and prednisone 20 mg one tablet p.o. x3 days. FOLLOWUP: Follow up with PCP in one week. Additionally, follow up with Dr. Rizzo in 2 to 4 weeks for wedge-shaped abnormality on liver and follow up with GI as ordered. HOSPITAL COURSE: Please see H and P for complete details. HISTORY OF PRESENT ILLNESS: Briefly, Mr. Hemphill is a very pleasant 26-year-old male with diagnosis of Crohn's disease here, who has had recent small-bowel obstruction resulting in partial resection. He came in with right-sided quadrant pain concerning for Crohn's exacerbation and wedge-shaped liver lesions noted on imaging. The patient had an echo performed, did not appear to be acute infarct. MRI was also performed and will need followup MRI in three to six weeks. Findings were discussed with Dr. High, who okayed the patient for discharge with close followup with GI and surgery. DICTATED BY: MD JAIR Matthews/MARY JO Raul Wright MD / [id number] CC: Raul Wright MD
--- NOTE | ~2016-08-19 | CN ---
Consultation Report [facility] [address] [place]. [address] NAME: TOD MILAN : [birth year] STATUS : ADM IN PAT#: [id number] AGE: 26 ADM/REG DATE : 08/20/16 MR#: [id number] REPORT SERV DATE: 08/22/16 DICTATED BY: MONICA KENNY DATE: 08/21/16 REPORT STATUS : Draft TRANSCRIBED BY: MODSuleiman DATE: 08/21/16 CONSULTATION DATE OF CONSULTATION: 08/20/2016 ATTENDING SURGEON: Dr. Monica Kenny. RESIDENT: Dr. Zay Romero. REASON FOR CONSULT: Abdominal pain. HISTORY OF PRESENT ILLNESS: This is a 26-year-old male with a history of Crohn's disease, diagnosed in the past year, was also status post exploratory laparotomy with small-bowel resection on 07/26/[address] Rizzo secondary to obstruction with stricture and abscess. He was discharged from this hospitalization on 08/03/2016. He re-presents with approximately 1-week of progressive right upper quadrant and right flank pain. The pain is sharp and crampy in nature with radiation up to his chest wall. The pain is worsened with movement and deep breathing. The patient had some associated nonbloody diarrhea and reports that he is usually constipated. Does endorse some weakness and shortness of breath, but he attributes this to trying to take smaller breaths to reduce the pain. Denies any nausea, vomiting. Denies any fevers or chills. Denies any prior episodes. PAST MEDICAL HISTORY: Crohn's, asthma, ADHD. SURGICAL HISTORY: Exploratory laparotomy with small-bowel resection. SOCIAL HISTORY: The patient is a current smoker. Denies alcohol use. Does endorse some mild marijuana use. FAMILY HISTORY: Significant for diabetes. ALLERGIES: NONE. HOME MEDICATIONS: Ibuprofen. The patient reports plan was for him to be on budesonide, but this was held secondary to some wound healing issues. REVIEW OF SYSTEMS: Pertinent positives and negatives as above in the HPI. The patient also endorses reflux. A full 12-point review of systems was completed with no other additional findings. PHYSICAL EXAMINATION: VITAL SIGNS: Temperature 98, blood pressure 123/70, heart rate 77, respirations 17, breathing 100% on room air. GENERAL: He is an adult black male, in no acute distress. He is nontoxic appearing. He is alert and oriented x3. Consultation Report [address] [place]. [address] NAME: TOD MILAN : [birth year] STATUS : ADM IN PAT#: [id number] AGE: 26 ADM/REG DATE : 08/20/16 MR#: [id number] REPORT SERV DATE: 08/22/16 DICTATED BY: MONICA KENNY DATE: 08/21/16 REPORT STATUS : Draft TRANSCRIBED BY: MARY JO DATE: 08/21/16 CARDIOVASCULAR: Regular rate and rhythm. PULMONARY: Clear to auscultation bilaterally. ABDOMINAL: Abdomen is soft, nondistended, nontender to palpation. The patient's lower midline incision has a small open area of skin, but has good granulation tissue, and is otherwise clean. LABORATORIES: White count 10, hematocrit 33, platelets 435. Renal panels within normal limits. Lipase was normal at 377. IMAGING: CT of the abdomen and pelvis, significant for some right lower quadrant and right upper quadrant small bowel thickening. There is no stranding, no free fluid. There is also a new wedge-shaped defect in the posterior right liver lobe possibly infarct in nature. ASSESSMENT AND PLAN: This is a 26-year-old male with Crohn's disease with abdominal pain. 1. Suspect pain secondary to Crohn's flare. I agree with current plan of treatment with antibiotics and steroids. GI consult is pending. 2. Concerning of liver lesions to unclear etiology. We will follow up duplex ultrasound. If this returns with findings of embolic or thrombotic source of this lesion, the patient will need anticoagulation. 3. No acute surgical need at this time. Abdomen is benign. We will follow along. DICTATED BY: MD YURY Davis/MARY JO Monica Kenny M.D. / [id number] CC: Suraj Hurley MD
--- NOTE | ~2016-08-19 | HP ---
History And Physical [place] [address] [facility] [place]. [address] NAME: OTD MILAN : [birth year] STATUS : ADM IN PAT#: [id number] AGE: 26 ADM/REG DATE : 08/20/16 MR#: [id number] REPORT SERV DATE: 08/20/16 DICTATED BY: KELLEY TORRES DATE: 08/20/16 REPORT STATUS : Draft TRANSCRIBED BY: MODL DATE: 08/20/16 DATE OF ADMISSION: 08/20/2016 CHIEF COMPLAINT: A 26-year-old male, just diagnosed with Crohn's disease in 2017, now recovering from recent small bowel resection with increasing abdominal pain. HISTORY OF PRESENT ILLNESS: The patient's history was obtained through careful interview with the patient and girlfriend coupled with review of [facility] medical records. The patient was just diagnosed with Crohn's disease earlier in 2016. He has had essentially a continuous exacerbation of this condition ever since. He finally had to present for a partial small bowel resection performed on 07/26/2016 under the care of Dr. Rizzo for repair of small bowel obstruction, small bowel inflammation, and an intra-abdominal abscess. After the surgery, he is able to be discharged in stable condition on 08/03/2016. Unfortunately, since returning home, he continued to be ill "ever since," but in the last week, the pain has really progressed. He describes it mostly in his right upper quadrant, a cramping, sore and sharp quality at times, 7 to 9/10 severity, exacerbated by breathing deeply, bending over. Sometimes the pain seems to go into his chest. He has had shortness of breath, felt exhausted. He has had diarrhea, but no blood in his stool. REVIEW OF SYSTEMS: Otherwise, a 14-point review of systems was obtained and was negative. PAST MEDICAL HISTORY: 1. Crohn's disease. Seen by Dr. Pink. 2. Asthma. 3. ADHD. PAST SURGICAL HISTORY: Small bowel resection. ALLERGIES: NO KNOWN DRUG ALLERGIES. SOCIAL HISTORY: The patient is a smoker. Does not drink alcohol. Does smoke occasional marijuana. Lives with his girlfriend. They have two children, ages 3 years old and 7 years old. He is unemployed. Lives in [place], [place]. FAMILY HISTORY: Significant for diabetes. No known family history of ulcerative colitis, Crohn disease nor liver disease. CURRENT MEDICATIONS: Ibuprofen p.r.n. PHYSICAL EXAMINATION: VITAL SIGNS: Temperature 98.4, pulse 101, blood pressure 130/62, respiratory rate 18, and History And Physical [place] [address] [facility] [place]. [address] NAME: TOD MILAN : [birth year] STATUS : ADM IN PAT#: [id number] AGE: 26 ADM/REG DATE : 08/20/16 MR#: [id number] REPORT SERV DATE: 08/20/16 DICTATED BY: KELLEY TORRES DATE: 08/20/16 REPORT STATUS : Draft TRANSCRIBED BY: MODSuleiman DATE: 08/20/16 O2 saturation 99% on room air. GENERAL: An ill-appearing male, in evidence of some distress secondary to abdominal pain. HEENT: Pupils equal, round, and reactive to light. No conjunctival pallor. No scleral icterus. Nares are patent. Oropharynx is clear of obstruction. Moist mucous membranes. NECK: Trachea midline. No thyromegaly. LYMPH: No cervical lymphadenopathy. No supraclavicular lymphadenopathy. RESPIRATORY: Clear to auscultation at bases. No wheezes, rales, or rhonchi. Normal respiratory effort. CARDIOVASCULAR: Tachycardic, regular rhythm. No murmurs, rubs, or gallops. No current extremity edema is appreciated. ABDOMEN: Flat abdomen, significant right upper quadrant tenderness and mid abdominal tenderness. No guarding. No rebound. Nondistended abdomen with active bowel tones. No hepatosplenomegaly. DERMATOLOGICAL: Warm and dry extremities. No pallor. No cyanosis. PSYCHIATRIC: Normal affect. Good mood. Alert and oriented x3. LABORATORY DATA: White blood count 10.4, hemoglobin 11, hematocrit 34, platelets 435. Sodium 138, potassium 3.8, chloride 102, bicarb 30, BUN 8, creatinine 0.67, glucose 100, lipase 377. Liver enzymes within normal limits. Urinalysis negative for infection. STUDIES: 1. CT angiogram of the chest was negative for pulmonary embolism. 2. CT scan of the abdomen shows focal ileitis and large wedge shaped liver lesions, new in onset, largest up to 3.9 cm. 3. EKG by my own evaluation shows sinus rhythm, no major abnormalities otherwise. ASSESSMENT AND PLAN: 1. Crohn's exacerbation. Place on IV Levaquin, IV Flagyl, IV steroids, mild for now. Consult Dr. Pink, lithographic general worker. 2. Wedge-shaped liver lesions seem to be associated with some kind of embolic phenomenon or disease? Check a Doppler ultrasound of the liver vasculature. Check an echocardiogram. Question whether it was possible that during bowel surgery either intraoperatively or postoperatively the patient "threw emboli" through something like the splanchnic circulation to the liver? 3. Anemia. KPL/MODL Kelley Torres M.D. / [id number] CC: History And Physical [address] [address] NAME: TOD MILAN : [birth year] STATUS : ADM IN [facility]#: [id number] AGE: 26 ADM/REG DATE : 08/20/16 MR#: [id number] REPORT SERV DATE: 08/20/16 DICTATED BY: KELLEY TORRES DATE: 08/20/16 REPORT STATUS : Draft TRANSCRIBED BY: MARY JO DATE: 08/20/16 MD Josemanuel Matthews M.D. Wesley Giles, MD
--- NOTE | ~2016-08-19 | CN ---
Consultation Report [address] [address] NAME: TOD MILAN : [birth year] STATUS : ADM IN PAT#: [id number] AGE: 26 ADM/REG DATE : 08/20/16 MR#: [id number] REPORT SERV DATE: 08/20/16 DICTATED BY: EKTA US DATE: 08/20/16 REPORT STATUS : Draft TRANSCRIBED BY: MODL DATE: 08/20/16 CONSULTATION DATE OF CONSULTATION: 08/20/2016 REASON FOR CONSULTATION: "I am asked to see this gentleman with abdominal pain." HISTORY OF PRESENT ILLNESS: This 26-year-old gentleman has had a recent diagnosis of Crohn disease. He presented with abdominal pain and a high-grade distal small-bowel obstruction. Laparotomy apparently made a diagnosis of Crohn disease and an intraabdominal abscess. Since hospital discharge, he has felt weak and fatigued. He has had intermittent right upper quadrant pain associated with nausea. He has primarily had constipation, but no blood per rectum. Specifically, he denies chills or fever. Workup so far had showed a normal CBC except for slight anemia. White count is normal. CT of the abdomen had shown an ill-defined area in the right lobe with smaller lesions in the anterior portion. They are hypodense and wedge-shaped. CTA of the chest was unremarkable. PHYSICAL EXAMINATION: CHEST: Negative. CARDIAC: Negative. ABDOMEN: Benign. IMPRESSION: 1. History of Crohn disease. 2. Abnormal x-ray. PLAN: Ultrasound, Dopplers, have been ordered for further evaluation. We will follow along with you. I agree with treatment with IV Cipro and Flagyl in the mean time. Thank you for allowing me to see this gentleman. MARIANA/MARY JO Ekta Us M.D. / [id number] CC: Suraj Hurley MD Consultation Report [address] [place]. [address] NAME: MILANTOD : [birth year] STATUS : ADM IN PAT#: [id number] AGE: 26 ADM/REG DATE : 08/20/16 MR#: [id number] REPORT SERV DATE: 08/20/16 DICTATED BY: EKTA US DATE: 08/20/16 REPORT STATUS : Draft TRANSCRIBED BY: MARY JO DATE: 08/20/16 NO PCP
[2016-08-19 22:10] LABS: BASOPHILS 0.2 %; BASOPHILS ABSOLUTE 0.02 10/3/uL (0.0-0.16); EOSINOPHILS 2.8 %; EOSINOPHILS ABSOLUTE 0.29 10/3/uL (0.0-0.53); HEMATOCRIT 33.6 % (40.0-51.0); HEMOGLOBIN 10.8 g/dL (13.6-17.8); IMMATURE GRANULOCYTES 0.4 %; IMMATURE GRANULOCYTES ABSOLUTE 0.04 10/3/uL (0.0-0.11); LYMPHOCYTES 22.8 %; LYMPHOCYTES ABSOLUTE 2.37 10/3/uL (0.67-4.30); MEAN CORPUS HGB CONC 32.1 g/dL (32.0-36.0); MEAN CORPUSCULAR HEMOGLOB 29.8 pg (26.0-34.0); MEAN CORPUSCULAR VOLUME 92.6 fL (80-100); MEAN PLATELET VOLUME 8.6 fL (9.2-13.0); MONOCYTES 10.2 %; MONOCYTES ABSOLUTE 1.06 10/3/uL (0.21-1.20); NEUTROPHILS 63.6 %; NEUTROPHILS ABSOLUTE 6.62 10/3/uL (2.02-8.40); PLATELET COUNT 435 10/3/uL (150-400); RBC DISTRIBUTION WIDTH 17.6 % (12.0-16.0); RED CELL COUNT 3.63 10/6/uL (4.7-6.1); WHITE BLOOD CELLS 10.4 10/3/uL (4.5-10.5)
[2016-08-19 22:11] LABS: MANUAL DIFF NO %
[2016-08-19 22:12] LABS: ASCORBIC ACID (UR NOT ORDER) 40 (NEG); BILIRUBIN, URINE NEGATIVE (NEG); ER URINALYSIS TAT 0 Hrs 08 Mins; KETONE, URINE NEGATIVE (NEG); LEUKOCYTE ESTERASE(NOT OR NEG (NEG); NITRITE (URINE) NEG (NEG); WBC (NOT ORDERED) (RFLEX) < 1 (0-5)
[2016-08-19 22:22] LABS: A/G RATIO 0.6 (0.7-1.9); ALKALINE PHOSPHATASE 97 U/L (45-117); BUN (BLOOD UREA NITROGEN) 8 MG/DL (6-23); CALCIUM, SERUM 8.9 MG/DL (8.5-10.4); CHLORIDE, SERUM 102 MMOL/L (96-112); CO2 (CARBON DIOXIDE) 30 MMOL/L (24-34); CREATININE 0.67 MG/DL (0.70-1.30); GFR AFRICAN AMERICAN 154 ML/MIN (>=60); GFR NON AFRICAN AMERICAN 133 ML/MIN (>=60); GLOBULIN 4.7 G/DL (2.5-4.1); POTASSIUM, SERUM 3.8 MMOL/L (3.5-5.3); SGOT(AST) 27 U/L (5-40); SGPT(ALT) 47 U/L (5-65); SODIUM, SERUM 138 MMOL/L (135-148); TOTAL BILIRUBIN 0.2 MG/DL (0-1.2); TOTAL PROTEIN 7.7 G/DL (6.0-8.5)
[2016-08-19 22:23] LABS: GLUCOSE, SERUM 100 MG/DL (60-99)
[2016-08-20] MEDS ORDERED: ADVIL PO (02:18)
[2016-08-20 12:52] LABS: BASOPHILS 0.1 %; BASOPHILS ABSOLUTE 0.01 10/3/uL (0.0-0.16); EOSINOPHILS 0 %; HEMATOCRIT 33.9 % (40.0-51.0); HEMOGLOBIN 11.1 g/dL (13.6-17.8); IMMATURE GRANULOCYTES 0.5 %; IMMATURE GRANULOCYTES ABSOLUTE 0.05 10/3/uL (0.0-0.11); LYMPHOCYTES 7.6 %; LYMPHOCYTES ABSOLUTE 0.71 10/3/uL (0.67-4.30); MEAN CORPUS HGB CONC 32.7 g/dL (32.0-36.0); MEAN CORPUSCULAR HEMOGLOB 30.1 pg (26.0-34.0); MEAN CORPUSCULAR VOLUME 91.9 fL (80-100); MEAN PLATELET VOLUME 8.7 fL (9.2-13.0); MONOCYTES 6.3 %; MONOCYTES ABSOLUTE 0.59 10/3/uL (0.21-1.20); NEUTROPHILS 85.5 %; NEUTROPHILS ABSOLUTE 7.96 10/3/uL (2.02-8.40); PLATELET COUNT 404 10/3/uL (150-400); RBC DISTRIBUTION WIDTH 17.5 % (12.0-16.0); RED CELL COUNT 3.69 10/6/uL (4.7-6.1); WHITE BLOOD CELLS 9.3 10/3/uL (4.5-10.5)
[2016-08-20 12:53] LABS: MANUAL DIFF NO %
[2016-08-20 13:10] LABS: A/G RATIO 0.6 (0.7-1.9); BUN (BLOOD UREA NITROGEN) 7 MG/DL (6-23); CALCIUM, SERUM 9.1 MG/DL (8.5-10.4); CHLORIDE, SERUM 103 MMOL/L (96-112); CO2 (CARBON DIOXIDE) 28 MMOL/L (24-34); CREATININE 0.76 MG/DL (0.70-1.30); GFR AFRICAN AMERICAN 146 ML/MIN (>=60); GFR NON AFRICAN AMERICAN 126 ML/MIN (>=60); GLOBULIN 4.7 G/DL (2.5-4.1); SGOT(AST) 26 U/L (5-40); SGPT(ALT) 45 U/L (5-65); SODIUM, SERUM 139 MMOL/L (135-148); TOTAL BILIRUBIN 0.2 MG/DL (0-1.2); TOTAL PROTEIN 7.7 G/DL (6.0-8.5)
[2016-08-20 13:11] LABS: ALKALINE PHOSPHATASE 78 U/L (45-117); GLUCOSE, SERUM 130 MG/DL (60-99)
[2016-08-21 03:43] LABS: BASOPHILS 0.1 %; BASOPHILS ABSOLUTE 0.01 10/3/uL (0.0-0.16); EOSINOPHILS 0 %; HEMATOCRIT 33.4 % (40.0-51.0); HEMOGLOBIN 10.9 g/dL (13.6-17.8); IMMATURE GRANULOCYTES 0.5 %; IMMATURE GRANULOCYTES ABSOLUTE 0.05 10/3/uL (0.0-0.11); LYMPHOCYTES 10.5 %; LYMPHOCYTES ABSOLUTE 1.13 10/3/uL (0.67-4.30); MEAN CORPUS HGB CONC 32.6 g/dL (32.0-36.0); MEAN CORPUSCULAR HEMOGLOB 30.2 pg (26.0-34.0); MEAN CORPUSCULAR VOLUME 92.5 fL (80-100); MEAN PLATELET VOLUME 8.9 fL (9.2-13.0); MONOCYTES 7.9 %; MONOCYTES ABSOLUTE 0.85 10/3/uL (0.21-1.20); NEUTROPHILS ABSOLUTE 8.76 10/3/uL (2.02-8.40); PLATELET COUNT 431 10/3/uL (150-400); RBC DISTRIBUTION WIDTH 17.4 % (12.0-16.0); RED CELL COUNT 3.61 10/6/uL (4.7-6.1); WHITE BLOOD CELLS 10.8 10/3/uL (4.5-10.5)
[2016-08-21 03:45] LABS: MANUAL DIFF NO %
[2016-08-21 03:58] LABS: A/G RATIO 0.6 (0.7-1.9); ALKALINE PHOSPHATASE 86 U/L (45-117); BUN (BLOOD UREA NITROGEN) 8 MG/DL (6-23); CALCIUM, SERUM 9.3 MG/DL (8.5-10.4); CHLORIDE, SERUM 107 MMOL/L (96-112); CO2 (CARBON DIOXIDE) 28 MMOL/L (24-34); GFR AFRICAN AMERICAN 151 ML/MIN (>=60); GFR NON AFRICAN AMERICAN 130 ML/MIN (>=60); GLOBULIN 4.8 G/DL (2.5-4.1); GLUCOSE, SERUM 121 MG/DL (60-99); POTASSIUM, SERUM 4.3 MMOL/L (3.5-5.3); SGOT(AST) 26 U/L (5-40); SGPT(ALT) 44 U/L (5-65); SODIUM, SERUM 140 MMOL/L (135-148); TOTAL BILIRUBIN 0.4 MG/DL (0-1.2); TOTAL PROTEIN 7.8 G/DL (6.0-8.5)
[2016-08-22 02:14] LABS: AMPHETAMINES (NOT ORD) NEG (NEG); BARBITURATES (NOT ORDERED NEG (NEG); BENZODIAZEPINES (NOT ORD) NEG (NEG); CANNABINOIDS (THC) POS (NEG); COCAINE (NOT ORDERED) NEG (NEG); OPIATES POS (NEG); PHENCYCLIDINE(PCP) NEG (NEG); TRICYCLICS NEG (NEG)
[2016-08-22] MEDS ORDERED: LEVAQUIN750 MG PO (13:04)
[2016-08-22] MEDS ORDERED: FLAG500TAB PO (13:05)
[2016-08-22] MEDS ORDERED: P20 PO (13:06)
== END 2016-08-22 18:06 | disposition home or self-care (01) | DRG 385 ==
LOC: ER 21:39 → 2SO 08-20 02:37
PROVIDERS: Hospitalist; Specialist; Student in an Organized Health Care Education/Training Program
DX: K50.90 Crohn's disease, unspecified, without complications (principal); K76.3 Infarction of liver; D64.9 Anemia, unspecified; J45.909 Unspecified asthma, uncomplicated; F90.9 Attention-deficit hyperactivity disorder, unspecified type; F17.210 Nicotine dependence, cigarettes, uncomplicated; Z90.49 Acquired absence of other specified parts of digestive tract; Z83.3 Family history of diabetes mellitus
CPT/HCPCS: 71275; 74177; 74183; 80053; 80305; 81001; 83690; 83735; 85025; 93005; 93306; 93975; 96374; 99285; A9270-GY; A9577; J1170; J1956; J2405; J2920; Q9967

== ENCOUNTER 2016-08-23 09:12 | Emergency (ER) | payer OTHER ==
[~2016-08-23 09:12] MED LIST changes: +FLAG500TAB PO; +LEVAQUIN750 MG PO; +P20 PO
[2016-08-23 10:21] LABS: BASOPHILS 0.3 %; BASOPHILS ABSOLUTE 0.04 10/3/uL (0.0-0.16); EOSINOPHILS 0.3 %; EOSINOPHILS ABSOLUTE 0.04 10/3/uL (0.0-0.53); ER CBC TAT 0 Hrs 05 Mins; HEMATOCRIT 37.6 % (40.0-51.0); HEMOGLOBIN 12.4 g/dL (13.6-17.8); IMMATURE GRANULOCYTES 0.5 %; IMMATURE GRANULOCYTES ABSOLUTE 0.06 10/3/uL (0.0-0.11); LYMPHOCYTES 21.5 %; LYMPHOCYTES ABSOLUTE 2.78 10/3/uL (0.67-4.30); MANUAL DIFF NO %; MEAN CORPUSCULAR HEMOGLOB 30.5 pg (26.0-34.0); MEAN CORPUSCULAR VOLUME 92.6 fL (80-100); MEAN PLATELET VOLUME 8.6 fL (9.2-13.0); MONOCYTES 6.7 %; MONOCYTES ABSOLUTE 0.87 10/3/uL (0.21-1.20); NEUTROPHILS 70.7 %; NEUTROPHILS ABSOLUTE 9.13 10/3/uL (2.02-8.40); PLATELET COUNT 397 10/3/uL (150-400); RBC DISTRIBUTION WIDTH 17.3 % (12.0-16.0); RED CELL COUNT 4.06 10/6/uL (4.7-6.1); WHITE BLOOD CELLS 12.9 10/3/uL (4.5-10.5)
[2016-08-23 10:37] LABS: A/G RATIO 0.7 (0.7-1.9); ALBUMIN 3.1 G/DL (3.5-5.0); BUN (BLOOD UREA NITROGEN) 7 MG/DL (6-23); CALCIUM, SERUM 9.3 MG/DL (8.5-10.4); CHLORIDE, SERUM 105 MMOL/L (96-112); CO2 (CARBON DIOXIDE) 29 MMOL/L (24-34); CREATININE 0.67 MG/DL (0.70-1.30); GFR AFRICAN AMERICAN 154 ML/MIN (>=60); GFR NON AFRICAN AMERICAN 133 ML/MIN (>=60); GLOBULIN 4.4 G/DL (2.5-4.1); POTASSIUM, SERUM 3.5 MMOL/L (3.5-5.3); SGOT(AST) 18 U/L (5-40); SGPT(ALT) 49 U/L (5-65); SODIUM, SERUM 139 MMOL/L (135-148); TOTAL BILIRUBIN 0.4 MG/DL (0-1.2); TOTAL PROTEIN 7.5 G/DL (6.0-8.5)
[2016-08-23 10:38] LABS: ALKALINE PHOSPHATASE 68 U/L (45-117); GLUCOSE, SERUM 94 MG/DL (60-99)
[2016-08-23 10:41] LABS: ANISOCYTOSIS 1+ (5-10/OIF) (0-5/OIF); ER DIFF TAT 0 Hrs 25 Mins; LYMPHOCYTES 10 %; LYMPHOCYTES ABSOLUTE (CALC) 1.29 10/3/uL (0.67-4.30); MONOCYTES 10 %; MONOCYTES ABSOLUTE (CALC) 1.29 10/3/uL (0.21-1.20); NEUTROPHILS ABSOLUTE (CALC) 10.32 10/3/uL (2.02-8.40); PLATELET ESTIMATE ADQ (ADEQUATE); SEGMENTED NEUTROPHIL (0) 80 %; TOTAL NUCLEATED CELLS 100
[2016-08-23 11:23] LABS: ASCORBIC ACID (UR NOT ORDER) NEG (NEG); BILIRUBIN, URINE NEGATIVE (NEG); ER URINALYSIS TAT 0 Hrs 16 Mins; KETONE, URINE NEGATIVE (NEG); LEUKOCYTE ESTERASE(NOT OR NEG (NEG); NITRITE (URINE) NEG (NEG); WBC (NOT ORDERED) (RFLEX) < 1 (0-5)
== END 2016-08-23 12:55 | disposition home or self-care (01) ==
LOC: ER 09:12
PROVIDERS: Physician Assistant
DX: K50.90 Crohn's disease, unspecified, without complications (principal); J45.909 Unspecified asthma, uncomplicated; F90.9 Attention-deficit hyperactivity disorder, unspecified type; Z79.899 Other long term (current) drug therapy; Z79.52 Long term (current) use of systemic steroids
CPT/HCPCS: 80053; 81001; 83690; 85025; 96374; 99284; J2405